=== PATIENT | male | born 1985 | race Caucasian/White ===

== ENCOUNTER 2020-02-14 13:00 | Emergency (ER) | payer SELFPAY ==
[2020-02-14 13:10] VITALS: BMI 26.6
[2020-02-14 13:12] VITALS: BP 127/82; PULSE 84; RESP 16; TEMP 36.9; O2SAT 98
--- NOTE | 2020-02-14 14:11 | XRR_ITS ---
PROCEDURE INFORMATION: Exam: XR Right Elbow Exam date and time: 02/14/2020 2:56 PM Age: 34 years old Clinical indication: Patient HX: PT has ulcerative colitis and gets joint pain. Worse in right elbow. ; Additional info: Injury TECHNIQUE: Imaging protocol: XR Right elbow. Views: 3 or more views. COMPARISON: No relevant prior studies available. FINDINGS: Bones/joints: The negative for acute bony abnormality Soft tissues: Normal. XR/XR elbow RT min 3V* [id number] IMPRESSION: No acute findings.
--- NOTE | 2020-02-14 14:13 | ED_ITS ---
HPI - General Adult General: Chief complaint: General Medical Stated complaint: joint pain Time Seen by Provider: 02/14/20 14:08 Source: patient Mode of arrival: ambulatory Limitations: no limitations History of Present Illness: HPI narrative: 34-year-old male who states he has ulcerative colitis and gets joint pain at times. He states he has had joint pains all over his body for months but mainly in his right elbow. He states is been worsening and is painful anytime to lift something. He denies any fevers. He denies any injuries. States it is improved with rest. Onset (ago): month(s) Associated symptoms: Deny chest pain, dyspnea, headache(s), nausea, rash or vomiting Review of Systems Const: Denies: fever(s), chills, body aches or change in appetite Eyes: Denies: blurry vision or eye discomfort ENMT: Denies: throat pain or dental pain Card: Denies: chest pain Resp: Denies: dyspnea GI: Denies: abdominal pain, nausea, vomiting or diarrhea : Denies: dysuria Musc: Reports: joint pain Skin/Breast: Denies: rash Neuro: Denies: headache(s) Psych: Denies: depression Theron/Lymph: Denies: easy bruising All/Imm: Denies: urticaria Physical Exam Const: COMMON NORMALS: no acute distress, patient oriented x3 and healthy appe aring HENMT: COMMON NORMALS: normocephalic and atraumatic HEAD & SCALP: normocephalic and atraumatic Eye: COMMON NORMALS: Equal, round and reactive pupils present and EOMs intact bilaterally PUPIL: Yes Equal, round and reactive pupils present Neck/C-Spine: COMMON NORMALS: full ROM and supple Chest: COMMONS NORMALS: normal inspection of the chest and normal palpation of entire chest wall Resp: COMMON NORMALS: normal respiratory effort, No retractions, No use of accessory muscles and clear to auscultation bilaterally AUSCULTATION: clear to auscultation bilaterally Cardio: COMMON NORMALS: regular rate, regular rhythm and No murmurs present (Cardio) RATE: regular rate RHYTHM: regular rhythm GI: COMMON NORMALS: Normal to inspection, nondistended, normoactive bowel sounds present, Soft to palpation, non-tender and no masses PALPATION: Yes Soft to palpation Extremity: COMMON NORMALS: normal to inspection and full ROM Neuro: COMMON NORMALS: patient oriented x3, moves all extremities and no focal motor deficits Psych: COMMON NORMALS: mental status grossly normal, Normal thought process present and cooperative THOUGHT PROCESS: Normal thought process present Skin: COMMON NORMALS: no rashes or lesions noted and no wounds GENERAL SKIN EXAM: no rashes or lesions noted Course Vital Signs: Vital signs: Vital Signs Temperature 98.4 F 02/14/20 13:12 Pulse Rate 84 02/14/20 13:12 Respiratory Rate 18 02/14/20 14:14 Blood Pressure 127/82 02/14/20 13:12 Pulse Oximetry 98 02/14/20 13:12 MDM - General Adult MDM Narrative: Medical decision making narrative: Patient presents with joint pain mainlyd the right elbow. His exam here is benign and x-ray and lab work are normal. We will place him on Naprosyn and he is stable for discharge. He is to follow-up primary care doctor in 2 to 4 days return if worsening. Lab Data: Labs: Lab Results 02/14/20 02/14/20 Range/Units 14:25 14:25 WBC 8.8 (4.0-10.0) 10^3/ uL RBC 5.12 (4.1-5.3) 10^6/u L Hgb 16.4 (11.7-16.6) g/dL Hct 48.5 (42.0-52.0) % MCV 94.7 H (80-94) fL MCH 32.0 (28.0-34.0) pg MCHC 33.8 (30.0-36.0) g/dL RDW 13.2 (12.1-15.1) % Plt Count 226 (130-400) 10^3/c mm MPV 11.0 H (7.4-10.4) fL Neut % (Auto) 64.4 % Lymph % (Auto) 24.4 % [place] % (Auto) 6.5 % Eos % (Auto) 3.9 % Baso % (Auto) 0.6 % Neut # (Auto) 5.7 (1.8-7.7) 10^3/u L Lymph # (Auto) 2.1 (0.8-4.8) 10^3/u L [place] # (Auto) 0.6 (0.2-0.9) 10^3/u L Eos # (Auto) 0.3 (0.0-0.8) 10^3/u L Baso # (Auto) 0.1 (0.0-0.1) 10^3/u L Nucleated RBC % (a uto) 0 % Nucleated RBCs # 0.0 /100WBC Sodium 139 (136-145) mmol/L Potassium 4.1 (3.5-5.1) mmol/L Chloride 104 (98-107) mmol/L Carbon Dioxide 24 (22-29) mmol/L Anion Gap 15.1 (5-19) BUN 12 (6-20) mg/dL Creatinine 0.7 (0.7-1.2) mg/dL GFR Calculation 128.3 (90-130) mL/min Glucose 92 (65-115) mg/dL Calculated Osmolal ity 284 L (285-295) mOsm/k g Calcium 9.5 (8.5-10.5) mg/dL Total Bilirubin 0.3 (0.15-1.2) mg/dL AST 27 (0-40) U/L ALT 18 (0-41) U/L Alkaline Phosphata se 72 (40-130) IU/L Total Protein 7.2 (6.6-8.7) g/dL Albumin 4.9 (3.5-5.2) g/dL Globulin 2.3 (1.3-4.6) g/dL Imaging Data^: xr r elbow: Attestation: I personally reviewed and interpreted this imaging study as follows: My impression: no acute abnormality Discharge Plan Discharge Patient Disposition: Home, Self-Care Clinical Impression: Elbow pain, right, Arthralgia Condition: Stable Prescriptions: New Naprosyn 500 mg tablet 500 mg PO BID PRN (Reason: pain) Qty: 20 RF: 0 No Action citalopram 20 mg tablet 20 mg PO DAILY 30 Days Qty: 30 RF: 5 trazodone 50 mg Tablet 50 mg PO BEDTIME RF: 0 omeprazole 20 mg Capsule,Delayed Release(Dr/Ec) 20 mg PO BID RF: 0 Discharge Orders: Discharge Order (Routine); Ordered 02/14/20 Ordered By: Bere Smith Referrals: Enio Harris MD [Primary Care Provider] - 1-3 days Discharge Diet: Advance as tolerated Discharge Activity: Resume usual activity Patient Instructions: Arthralgia (ED) Coding Level of Care Code ED Purification Operator for Tc Fwd Exam Comprehensive
[2020-02-14 14:14] VITALS: RESP 18
[2020-02-14 14:34] LABS: Basophils # 0.1 10^3/uL (0.0-0.1); Basophils % 0.6 %; Eosinophils # 0.3 10^3/uL (0.0-0.8); Eosinophils % 3.9 %; Hematocrit 48.5 % (42.0-52.0); Hemoglobin 16.4 g/dL (11.7-16.6); Lymphocytes # 2.1 10^3/uL (0.8-4.8); Lymphocytes % 24.4 %; Mean Corpuscular HGB Conc 33.8 g/dL (30.0-36.0); Mean Corpuscular Volume 94.7 fL (80-94); Monocytes # 0.6 10^3/uL (0.2-0.9); Monocytes % 6.5 %; Neutrophils # 5.7 10^3/uL (1.8-7.7); Neutrophils % 64.4 %; Nucleated Red Blood Cells % 0 %; Platelet Count 226 10^3/cmm (130-400); Red Blood Count 5.12 10^6/uL (4.1-5.3); Red Cell Distribution Width 13.2 % (12.1-15.1); White Blood Count 8.8 10^3/uL (4.0-10.0)
[2020-02-14 14:49] LABS: Alanine Aminotransferase 18 U/L (0-41); Albumin Level 4.9 g/dL (3.5-5.2); Alkaline Phosphatase 72 IU/L (40-130); Anion Gap 15.1 (5-19); Aspartate Amino Transferase 27 U/L (0-40); Blood Urea Nitrogen 12 mg/dL (6-20); Calcium 9.5 mg/dL (8.5-10.5); Carbon Dioxide 24 mmol/L (22-29); Chloride 104 mmol/L (98-107); Globulin 2.3 g/dL (1.3-4.6); Glomerular Filtration Rate 128.3 mL/min (90-130); Glucose 92 mg/dL (65-115); Osmolality Calculated 284 mOsm/kg (285-295); Potassium 4.1 mmol/L (3.5-5.1); Sodium 139 mmol/L (136-145); Total Bilirubin 0.3 mg/dL (0.15-1.2); Total Protein 7.2 g/dL (6.6-8.7)
[2020-02-14] MEDS: sodium chloride 0.9% 1,000 ML 999 ML IV (15:00)
[2020-02-14] MEDS: ketorolac 30 mg/mL INJ IVP (15:02)
[2020-02-14 16:08] VITALS: BP 127/82; PULSE 84; RESP 18; TEMP 36.9; O2SAT 98
== END 2020-02-14 16:08 | disposition home or self-care (01) ==
PROVIDERS: Emergency Provider Emergency Medicine; PCP Family Medicine
DX: M25.521 Pain in right elbow (principal)
CPT/HCPCS: 12345; 36415; 73080; 80053; 85025; 96360; 96361; 96374; 96375; 99283; J1885; J7030

== ENCOUNTER 2020-04-20 13:22 | Emergency (ER) | payer SELFPAY ==
[2020-04-20 13:38] VITALS: BP 130/77; PULSE 82; RESP 16; TEMP 36.5; O2SAT 98; BMI 26.4
--- NOTE | 2020-04-20 13:47 | ED_ITS ---
HPI - Back Pain/Injury General: Chief Complaint: Back Pain/Injury Stated Complaint: back pain Time Seen by Provider: 04/20/20 13:47 History of Present Illness: HPI Narrative: Patient is a 35-year-old male who comes to the ED with lower back muscle spasms and lower back pain. Symptoms started yesterday. Patient says he has a past medical history of lower back spasms. 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 He currently rates his back pain an 8 out of 10. Says any movement causes increased pain and muscle spasms. Denies any numbness tingling or pain down the extremities. Denies bladder or bowel incontinence or pelvic anesthesia. Denies any recent trauma or injury to cause back pain. Associated symptoms: Deny abdominal pain, chills, dysuria, fatigue, fever(s), hematuria, nausea or vomiting Review of Systems Const: Denies: fever(s), chills or fatigue Eyes: Denies: change in vision or eye discomfort ENMT: Denies: throat pain, odynophagia, nasal discharge or nasal congestion Card: Denies: chest pain, palpitations, edema, swelling of feet/ankles, dyspnea on exertion or orthopnea Resp: Denies: dyspnea, productive cough or non-productive cough GI: Denies: abdominal pain, nausea, vomiting, diarrhea, constipation or hematochezia : Denies: flank pain, difficulty urinating, dysuria or hematuria Musc: Reports: back pain (lumbar); Denies: neck pain or extremity swelling Skin/Breast: Denies: rash or new lesions Neuro: Denies: headache(s), numbness in extremities or weakness in extremities PFSH ED PFSH: Social History Smoking and tobacco status: current every day smoker Physical Exam Const: COMMON NORMALS: no acute distress, patient oriented x3, healthy appearing and alert GENERAL APPEARANCE: cooperative HENMT: COMMON NORMALS: normocephalic HEAD & SCALP: normocephalic MOUTH: Normal oral and palatal mucosa present THROAT: posterior oropharynx normal and uvula midline Neck/C-Spine: COMMON NORMALS: supple GENERAL: Yes normal visual inspection Resp: COMMON NORMALS: normal respiratory effort, No retractions, No use of accessory muscles and clear to auscultation bilaterally EFFORT & INSPECTION: Yes able to speak in complete sentences, No respiratory distress and No labored AUSCULTATION: clear to auscultation bilaterally Cardio: COMMON NORMALS: regular rate, regular rhythm, S1 normal heart sound present, S2 normal heart sound present, No gallops present (Cardio), No clicks present (Cardio), No murmurs present (Cardio) and Peripheral pulses 2+ throughout RATE: regular rate RHYTHM: regular rhythm HEART SOUNDS: S1 normal heart sound present and S2 normal heart sound present PERIPHERAL PULSES: Peripheral pulses 2+ throughout GI: COMMON NORMALS: Normal to inspection, nondistended, normoactive bowel sounds present, Soft to palpation, non-tender and no masses PALPATION: Yes Soft to palpation : COMMON NORMALS: Yes no CVA tenderness BLADDER/KIDNEY EXAM: Yes no CVA tenderness Back/Pelvis: COMMON NORMALS: no CVA tenderness LUMBAR SPINE/LOWER BACK: Yes paraspinal muscle tenderness Lumbar paraspinal muscle tenderness: bilateral (Increased tenderness on right side) and Yes paraspinal muscle spasm Lumbar paraspinal muscle spasm: right Extremity: COMMON NORMALS: normal to inspection Neuro: COMMON NORMALS: patient oriented x3 and moves all extremities SENSORIUM/ORIENTATION: Yes alert Skin: COMMON NORMALS: no rashes or lesions noted GENERAL SKIN EXAM: no rashes or lesions noted and dry skin Course Vital Signs: Vital signs: Vital Signs Temperature 97.7 F 04/20/20 13:38 Pulse Rate 82 04/20/20 13:38 Respiratory Rate 16 04/20/20 13:38 Blood Pressure 130/77 04/20/20 13:38 Pulse Oximetry 98 04/20/20 13:38 MDM - Back Pain/Injury MDM Narrative: Medical decision making narrative: Patient is a 35-year-old male with the ED with lower back pain and muscle spasms. Denies any pain radiating down the leg, numbness or tingling to extremities, pelvic, bladder or bowel incontinence. Physical exam showed some lumbar paraspinal muscle tenderness with increased tenderness on the right side. lumbar Paraspinal muscle spasms on the right side. Patient was given a dose of hydrocodone and Norflex while here in the ED. He was discharged with a prescription for Robaxin. He was told to go home and take Tylenol for pain, apply cold pack, stretch and massage lower back daily. Follow-up with PCP in 7 to 10 days. Return to ED precautions given. Patient understood agree with plan. Discharge Plan Discharge Patient Disposition: Home Clinical Impression: Spasm of lumbar paraspinous muscle, Lumbar back pain Condition: Stable Prescriptions: New Robaxin-750 750 mg tablet 750 mg PO Q8H Qty: 30 RF: 0 No Action citalopram 20 mg tablet 20 mg PO DAILY 30 Days Qty: 30 RF: 5 trazodone 50 mg Tablet 50 mg PO BEDTIME RF: 0 omeprazole 20 mg Capsule,Delayed Release(Dr/Ec) 20 mg PO BID RF: 0 Naprosyn 500 mg tablet 500 mg PO BID PRN (Reason: pain) Qty: 20 RF: 0 Discharge Orders: Discharge Order (Routine); Ordered 04/20/20 Ordered By: Raffaele Forbes Referrals: Enio Harris MD [Primary Care Provider] - Discharge Diet: Regular Discharge Activity: Increase activity as tolerated Patient Instructions: Acute Low Back Pain (ED), Muscle Spasm (ED) Activity Restrictions/Additional Instructions: Follow-up with medical provider as directed in 7-10 days. Take medications as prescribed. Robaxin is a muscle relaxer and can cause some drowsiness so take at night before bed. If you do take during the day use with caution. Apply cold pack on back, stretch daily and massage sore muscles help with symptoms. Take btby-mby-ghcotld Tylenol to help with pain. Return to the ER or your medical provider if condition worsens. Please read and understand discharge instructions. If any questions, please ask. Stand Alone Forms: Work/School Release Discharge Date/Time: 04/20/20 14:13 Coding Level of Care Code ED Java [id number] Software Engineer for Tc Fwd Exam Comprehensive
[2020-04-20] MEDS: HYDROcodone-acetaminophen 7.5-325 mg Tablet 1 TAB PO (14:06)
[2020-04-20] MEDS: orphenadrine 30 mg/mL Inj 2 mL 60 MG IM (14:06)
== END 2020-04-20 14:13 | disposition home or self-care (01) ==
PROVIDERS: Emergency Provider Physician Assistant; PCP Family Medicine
DX: M62.830 Muscle spasm of back (principal); M54.5 Low back pain; F17.210 Nicotine dependence, cigarettes, uncomplicated
CPT/HCPCS: 12345; 96372; 99281; 99283; J2360

== ENCOUNTER 2020-06-19 15:27 | Emergency (ER) | payer SELFPAY ==
[2020-06-19 15:29] VITALS: BP 126/85; PULSE 87; RESP 18; TEMP 36.6; O2SAT 98; BMI 26.3
--- NOTE | 2020-06-19 15:49 | ED_ITS ---
HPI - Eye Problem General: Chief complaint: Eye Problems Stated complaint: Left Eye Injury Time Seen by Provider: 06/19/20 15:45 History of Present Illness: HPI Narrative: Patient complained about eye pain since yesterday. 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 chief complaint: eye pain Onset (ago): day(s) Onset description: sudden Duration: constant and progressively worsening Location: left eye Eye Symptoms: foreign body sensation Place: work Mechanism: other (Unsure) Severity: moderate Severity scale (1-10): 4 If Pain, Quality: throbbing Associated symptoms: Reports no associated symptoms; Denies fever(s) Review of Systems Const: Denies: fever(s) or chills Eyes: Reports: blurry vision, eye discomfort and increased production of tears (Left eye) PFSH ED PFSH: Social History Smoking and tobacco status: current every day smoker Physical Exam Const: COMMON NORMALS: no acute distress Eye: GENERAL EYE: other (Appears to be foreign body 12 o'clock position cornea) Psych: COMMON NORMALS: mental status grossly normal Procedures FB Removal Eye Time Out performed: No Location: eye (L) Topical anesthetic used: tetracaine Foreign body: other Evidence of corneal penetration: No Technique: cotton tip swab and needle Procedure performed under: direct visualization with magnification Post-procedure medication: ophthalmic antibiotic and topical anesthetic Patient tolerated procedure: well Course Vital Signs: Vital signs: Vital Signs Temperature 97.9 F 06/19/20 15:29 Pulse Rate 87 06/19/20 15:29 Respiratory Rate 18 06/19/20 15:29 Blood Pressure 126/85 06/19/20 15:29 Pulse Oximetry 98 06/19/20 15:29 Discharge Plan Discharge Prescriptions: No Action citalopram 20 mg tablet 20 mg PO DAILY 30 Days Qty: 30 RF: 5 trazodone 50 mg Tablet 50 mg PO BEDTIME RF: 0 omeprazole 20 mg Capsule,Delayed Release(Dr/Ec) 20 mg PO BID RF: 0 Naprosyn 500 mg tablet 500 mg PO BID PRN (Reason: pain) Qty: 20 RF: 0 Robaxin-750 750 mg tablet 750 mg PO Q8H Qty: 30 RF: 0 Coding Level of Care Code ED Solution Specialist for Chg Fwd Exam Expanded Problem Focused
[2020-06-19] MEDS: tetracaine 0.5% Op Soln 4 mL Btl 1 DROP EYE-LEFT (16:37)
[2020-06-19] MEDS: erythromycin Op Oint 3.5 gm Tube 1 APPLIC EYE-LEFT (16:37)
[2020-06-19 16:38] VITALS: BP 127/81; PULSE 85; RESP 14; O2SAT 98
== END 2020-06-19 16:38 | disposition home or self-care (01) ==
PROVIDERS: Emergency Provider Nurse Practitioner Family; PCP Family Medicine
DX: H57.12 Ocular pain, left eye (principal); H53.8 Other visual disturbances; Z79.1 Long term (current) use of non-steroidal anti-inflammatories (NSAID); F17.200 Nicotine dependence, unspecified, uncomplicated
CPT/HCPCS: 12345; 65205; 99281; 99283

== ENCOUNTER 2020-10-08 15:46 | Emergency (ER) | payer SELFPAY ==
[2020-10-08 15:58] VITALS: BP 133/82; PULSE 93; RESP 14; TEMP 36.9; O2SAT 97; BMI 25.8
--- NOTE | 2020-10-08 17:32 | W.ED.GENADLT ---
HPI - General Adult General: Chief complaint: General Medical Stated complaint: THROAT DISCOMFORT Time Seen by Provider: 10/08/20 17:23 Source: patient Mode of arrival: ambulatory Limitations: no limitations History of Present Illness: HPI narrative: Patient comes in today for complaints of throat discomfort for the last month. Patient reports some rawness and tenderness in the throat. Patient also notes some gland tenderness on the left submandibular area. 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 Patient appears well. Patient appears no acute distress. Patient does have a history of Crohn's disease. Review of Systems General: Reports: 10 or more systems reviewed and unremarkable except in HPI and below ENMT: Reports: throat pain PFSH ED PFSH: Social History Smoking and tobacco status: current every day smoker Physical Exam Const: COMMON NORMALS: no acute distress and patient oriented x3 GENERAL APPEARANCE: cooperative HENMT: COMMON NORMALS: normocephalic, TM's normal bilaterally and Normal external nose present HEAD & SCALP: normal to inspection and normocephalic NOSE: Normal external nose present TYMPANIC MEMBRANE: TM's normal bilaterally MOUTH: Normal oral and palatal mucosa present THROAT: posterior oropharynx normal (No swelling, symmetrical, mild erythema.) Eye: GENERAL EYE: appearance normal, both eyes and all related structures Neck/C-Spine: COMMON NORMALS: full ROM Lymph: OTHER: Left side submandibular lymphadenopathy or gland swelling. Chest: COMMONS NORMALS: normal inspection of the chest Resp: COMMON NORMALS: normal respiratory effort EFFORT & INSPECTION: Yes able to speak in complete sentences Cardio: COMMON NORMALS: regular rate and regular rhythm RATE: regular rate RHYTHM: regular rhythm GI: COMMON NORMALS: non-tender : COMMON NORMALS: Yes no CVA tenderness BLADDER/KIDNEY EXAM: Yes no CVA tenderness Back/Pelvis: COMMON NORMALS: no CVA tenderness and thoracic and lumbar spine normal to inspection Extremity: COMMON NORMALS: normal to inspection Neuro: COMMON NORMALS: patient oriented x3 and moves all extremities Psych: COMMON NORMALS: mental status grossly normal and cooperative Skin: COMMON NORMALS: no rashes or lesions noted GENERAL SKIN EXAM: no rashes or lesions noted Course Vital Signs: Vital signs: Vital Signs Temperature 98.4 F 10/08/20 15:58 Pulse Rate 93 10/08/20 15:58 Respiratory Rate 14 10/08/20 15:58 Blood Pressure 133/82 10/08/20 15:58 Pulse Oximetry 97 10/08/20 15:58 MDM - General Adult MDM Narrative: Medical decision making narrative: Patient came in today for complaints of sore throat with some lymphadenopathy for the last month. Patient has a history of Crohn's. Patient reports some night sweats but reports he always has night sweats. Patient appears well. Patient appears in no acute distress. Exam notes some mild redness to the posterior pharynx. Patient does have some enlargement of the left submandibular lymph node with tenderness but otherwise no other signs of significant lymphadenopathy is noted. Patient manages secretions well. Patient does report recurrent reflux symptoms which he takes omeprazole daily. Differential diagnosis includes not limited to viral pharyngitis, strep pharyngitis, GERD, Paulo-Aranda virus. Due to the patient's symptoms lasting greater than 4 weeks we will go ahead and do a short course of antibiotics of a beta-lactam to cover for strep. Patient was also given 1 dose of dexamethasone that may help with his tenderness of his throat. Discussed other options with patient that may be caused from a Paulo-Aranda virus that will last about 6 to 8 weeks and usually recovers without any further sequela. Another thought may be GERD which he is continuing with omeprazole he may need to seek further treatment for. Patient reported understanding and agreed to plan. Discharge Plan Discharge Patient Disposition: Home Clinical Impression: Pharyngitis Qualifiers: Pharyngitis/tonsillitis etiology: unspecified etiology Qualified Code(s): J02.9 - Acute pharyngitis, unspecified Condition: Stable Prescriptions: New amoxicillin 500 mg tablet 500 mg PO TID Qty: 21 RF: 0 dexamethasone 4 mg tablet 8 mg PO ONCE Qty: 2 RF: 0 No Action citalopram 20 mg tablet 20 mg PO DAILY 30 Days Qty: 30 RF: 5 erythromycin 5 mg/gram (0.5 %) ointment 1 applic ophthalmic (eye) QID Qty: 3.5 RF: 0 trazodone 50 mg Tablet 50 mg PO BEDTIME RF: 0 omeprazole 20 mg Capsule,Delayed Release(Dr/Ec) 20 mg PO BID RF: 0 Naprosyn 500 mg tablet 500 mg PO BID PRN (Reason: pain) Qty: 20 RF: 0 Robaxin-750 750 mg tablet 750 mg PO Q8H Qty: 30 RF: 0 Discharge Orders: Discharge ED (Routine); Ordered 10/08/20 Ordered By: Rd Jerez Referrals: Enio Harris MD [Primary Care Provider] - Discharge Diet: Usual diet Discharge Activity: Increase activity as tolerated Patient Instructions: Pharyngitis (ED), Opioid Safety Activity Restrictions/Additional Instructions: Drink plenty of water with medication. Healthy diet and activity. Use acetaminophen or ibuprofen for further pain relief. Follow-up with primary care for recheck of symptoms in 1 week. Return to emergency department for worsening symptoms such as high fever, difficulty swallowing, or worsening swelling in the lymph nodes. Coding Level of Care Code ED Ekg Monitor for Tc Delgado
[2020-10-08 17:58] VITALS: BP 124/83; PULSE 79; RESP 14; O2SAT 98
== END 2020-10-08 17:52 | disposition home or self-care (01) ==
PROVIDERS: Emergency Provider Nurse Practitioner Family; PCP Family Medicine
DX: J02.9 Acute pharyngitis, unspecified (principal); F17.210 Nicotine dependence, cigarettes, uncomplicated
CPT/HCPCS: 99282

== ENCOUNTER 2020-10-22 15:32 | Emergency (ER) | payer SELFPAY ==
[2020-10-22] VITALS (7 sets, daily range): BP systolic 120–153; BP diastolic 82–95; PULSE 67–92; RESP 14–18; TEMP 37.1; O2SAT 96–98; BMI 26.6
[2020-10-22 17:04] LABS: Basophils % 0.4 %; Eosinophils # 0.2 10^3/uL (0.0-0.8); Hematocrit 50.3 % (42.0-52.0); Hemoglobin 17.2 g/dL (11.7-16.6); Lymphocytes # 1.6 10^3/uL (0.8-4.8); Lymphocytes % 17.6 %; Mean Corpuscular HGB Conc 34.2 g/dL (30.0-36.0); Mean Corpuscular Hemoglobin 32.2 pg (28.0-34.0); Mean Corpuscular Volume 94.2 fL (80-94); Mean Platelet Volume 10.8 fL (7.4-10.4); Monocytes # 0.5 10^3/uL (0.2-0.9); Monocytes % 5.4 %; Neutrophils # 6.66 10^3/uL (1.8-7.7); Neutrophils % 74.3 %; Nucleated Red Blood Cells % 0 %; Platelet Count 244 10^3/cmm (130-400); Red Blood Count 5.34 10^6/uL (4.1-5.3); Red Cell Distribution Width 13.1 % (12.1-15.1)
[2020-10-22 17:05] LABS: Add Urine Microscopic? NO
--- NOTE | 2020-10-22 17:11 | CTR_ITS ---
PROCEDURE INFORMATION: Exam: CT Abdomen And Pelvis With Contrast Exam date and time: 10/22/2020 5:18 PM Age: 35 years old Clinical indication: Nausea; Abdominal pain; Localized; Left lower quadrant (llq); Prior surgery; Surgery type: Appy; Additional info: H/o uc. Abdominal pain TECHNIQUE: Imaging protocol: Computed tomography of the abdomen and pelvis with contrast. Total images: 218 Radiation optimization: All CT scans at this facility use at least one of these dose optimization techniques: automated exposure control; mA and/or kV adjustment per patient size (includes targeted exams where dose is matched to clinical indication); or iterative reconstruction. Contrast material: OMNI 300; Contrast volume: 95 ml; Contrast route: INTRAVENOUS (IV); COMPARISON: CT Abdomen/Pelvis Renal [id number] 12/07/2017 11:47 PM RADIATION DOSE METRICS: Total DLP (mGy-cm): 1085.8 FINDINGS: Lungs: Limited assessment of the lung bases fails to reveal evidence for active cardiopulmonary process. Liver: Unremarkable. No mass. Gallbladder and bile ducts: Normal. No calcified stones. No ductal dilation. Pancreas: Pancreas unremarkable. No visible pancreatic ductal ectasia. Spleen: Normal. No splenomegaly. Adrenal glands: Normal. No mass. Kidneys and ureters: Tiny 4 mm cortical cyst equator left kidney. No follow-up recommended. No visible hydronephrosis or perinephric fluid. No visible nephrolithiasis or ureterolithiasis. Stomach and bowel: Mild mucosal thickening of the descending colon from the splenic flexure to the proximal sigmoid: level consistent with active either infectious or inflammatory colitis. Also evidence of mucosal prominence and increased enhancement of the stomach, duodenum, and jejunal small bowel loops suggesting active gastroenteritis. Nonobstructive bowel pattern. No evidence for significant adynamic or reactive ileus. Appendix: Status post appendectomy. Intraperitoneal space: No visible pneumoperitoneum or intraperitoneal ascites. Vasculature: The abdominal aorta is nonaneurysmal. Lymph nodes: Unremarkable. No enlarged lymph nodes. Urinary bladder: Urinary bladder unremarkable. No filling defect. No asymmetrical bladder wall thickening. No visible bladder stone. Reproductive: Unremarkable as visualized. Bones/joints: Mild scoliotic curvature. No visible active or acute osseous pathology. Soft tissues: Unremarkable. CT/CT abdomen pelvis w con* [id number] IMPRESSION: 1. Mild mucosal thickening of the descending colon from the splenic flexure to the proximal sigmoid colon level consistent with active either infectious or inflammatory colitis. Findings would be consistent with recurrence of ulcerative colitis. 2. Evidence of mucosal prominence and increased enhancement of the stomach, duodenum, and jejunal small bowel loops suggesting the potential for active gastroenteritis. COMMENTS: Consistent with the [employer]'s Incidental Findings Committee white paper (J Am Meena Radiol 2018): Any incidental renal lesion less than 1 cm or classified as too small to characterize, or any incidental cystic renal lesion characterized as simple-appearing, is likely benign. No follow-up imaging is recommended for these lesions per consensus recommendations based on imaging criteria. Radiation Dose CTDIVOL = (mGy): DLP = 1085.8 (mGy-cm)
[2020-10-22 17:14] LABS: Bilirubin Urine Neg (Negative); Blood Urine Neg (Negative); Glucose Urine UA Norm (Normal); Ketones Urine Negative (Negative); Leukocyte Esterase Urine Negative (Negative); Nitrate Urine Negative (Negative); Protein Urine Neg (Negative); Sulfosalicylic Acid Urine Negative (Negative); Urine Appearance Clear (CLEAR); Urine Color Yellow (Yellow); Urobilinogen Urine Norm (Negative); pH Urine 8 (5-7)
[2020-10-22 17:23] LABS: Alanine Aminotransferase 23 U/L (0-41); Albumin Level 4.9 g/dL (3.5-5.2); Alkaline Phosphatase 105 IU/L (40-130); Anion Gap 13.1 (5-19); Aspartate Amino Transferase 26 U/L (0-40); Blood Urea Nitrogen 14 mg/dL (6-20); Calcium 9.6 mg/dL (8.5-10.5); Carbon Dioxide 27 mmol/L (22-29); Chloride 101 mmol/L (98-107); Globulin 2.7 g/dL (1.3-4.6); Glomerular Filtration Rate 109.4 mL/min (90-130); Glucose 101 mg/dL (65-115); Lipase 42 U/L (13-60); Osmolality Calculated 285 mOsm/kg (285-295); Potassium 4.1 mmol/L (3.5-5.1); Sodium 137 mmol/L (136-145); Total Bilirubin 0.3 mg/dL (0.15-1.2); Total Protein 7.6 g/dL (6.6-8.7)
[2020-10-22] MEDS: iohexol 300 mg/mL 100 mL Btl IV (17:55)
[2020-10-22 18:08] LABS: Lactate (Lactic Acid level) 1.9 mmol/L (0.5-2.2)
[2020-10-22] MEDS: morphine 4 mg/mL SDV 1 mL 2 MG IVP (18:10)
[2020-10-22] MEDS: sodium chloride 0.9% 1,000 ML 999 ML IV (18:13)
--- NOTE | 2020-10-22 18:13 | W.ED.ABDPA2 ---
HPI - Abdominal Pain General: Chief Complaint: Abdominal Pain Stated Complaint: SEVERE STOMACH PAIN Time Seen by Provider: 10/22/20 17:11 History of Present Illness: HPI narrative: The patient is a 35-year-old male with past medical history ulcerative colitis who comes to the ER complaining of left and left lower quadrant abdominal pain associated with diarrhea. No blood. He recognizes this as a flare of his Crohn's disease. He has been unable to afford his medicines for approximately 6 months MD elicited complaint: abdominal pain Pain Consistency: constant Location: LLQ Severity: moderate Quality: sharp Exacerbating factors: bowel movement Relieving factors: nothing Associated Symptoms: Reports diarrhea Review of Systems General: Reports: 10 or more systems reviewed and unremarkable except in HPI and below Const: Denies: fatigue Eyes: Denies: change in vision, blurry vision or eye redness ENMT: Denies: throat pain, swelling of lips/tongue, ear or mastoid pain or nasal congestion Card: Denies: chest pain, palpitations, irregular heart rhythm, edema, dyspnea on exertion or orthopnea Resp: Denies: dyspnea, productive cough or non-productive cough GI: Reports: diarrhea : Denies: flank pain, urinary frequency or urinary urgency Musc: Denies: neck pain, back pain, extremity pain, joint pain, joint redness, limited range of motion or muscle weakness Skin/Breast: Denies: rash, pruritus, erythema, skin pain or skin tenderness Neuro: Denies: headache(s), numbness in extremities, weakness in extremities, sensory changes, difficulty walking, dizziness, confusion or Slurred speech present Psych: Denies: anxiety or depression Endo: Denies: polyuria All/Imm: Denies: urticaria, throat swelling or tongue swelling PFSH ED PFSH: Social History Smoking and tobacco status: current every day smoker Physical Exam Const: COMMON NORMALS: no acute distress, average body habitus, patient oriented x3, no limitations, healthy appearing, alert and well nourished GENERAL APPEARANCE: cooperative, comfortable, well kempt and well developed ORIENTATION/CONSCIOUSNESS: Yes awake, Yes oriented to person, Yes oriented to place and Yes oriented to time HENMT: COMMON NORMALS: normocephalic, external ears normal and Normal external nose present HEAD & SCALP: normal to inspection and normocephalic NOSE: Normal external nose present EXTERNAL EAR: Yes external ears normal MOUTH: Normal oral and palatal mucosa present THROAT: posterior oropharynx normal Eye: COMMON NORMALS: Equal, round and reactive pupils present and EOMs intact bilaterally GENERAL EYE: appearance normal, both eyes and all related structures PUPIL: Yes Equal, round and reactive pupils present Neck/C-Spine: COMMON NORMALS: full ROM, no lymphadenopathy, no meningeal signs and no JVD GENERAL: Yes normal visual inspection Lymph: LYMPHATIC: no lymphadenopathy noted Chest: COMMONS NORMALS: normal inspection of the chest and normal palpation of entire chest wall Resp: COMMON NORMALS: normal respiratory effort, No retractions, No use of accessory muscles, clear to auscultation bilaterally and percussion normal EFFORT & INSPECTION: Yes able to speak in complete sentences AUSCULTATION: clear to auscultation bilaterally PERCUSSION: percussion normal Cardio: COMMON NORMALS: no JVD, regular rate, regular rhythm, S1 normal heart sound present, S2 normal heart sound present and Peripheral pulses 2+ throughout RATE: regular rate RHYTHM: regular rhythm HEART SOUNDS: S1 normal heart sound present and S2 normal heart sound present PERIPHERAL PULSES: Peripheral pulses 2+ throughout GI: COMMON NORMALS: Normal to inspection, nondistended, normoactive bowel sounds present, Soft to palpation, non-tender and no masses INSPECTION: Yes normal to inspection PALPATION: Yes Soft to palpation : COMMON NORMALS: Yes no CVA tenderness BLADDER/KIDNEY EXAM: Yes no CVA tenderness Back/Pelvis: COMMON NORMALS: no CVA tenderness, thoracic and lumbar spine normal to inspection, no thoracic nor lumbar tenderness and thoraco-lumbar ROM normal Extremity: COMMON NORMALS: normal to inspection, full ROM, capillary refill normal, no joint enlargement and no pedal edema GENERAL: Yes normal exam except as noted Neuro: COMMON NORMALS: patient oriented x3, CN's II-XII intact bilaterally, moves all extremities, no focal motor deficits, no sensory deficits noted and gait normal SENSORIUM/ORIENTATION: Yes alert, Yes oriented to person, Yes oriented to place and Yes oriented to time MENINGEAL SIGNS: Yes no meningeal signs Psych: COMMON NORMALS: mental status grossly normal, Normal thought process present, cooperative, normal affect and speech normal APPEARANCE: Yes well kempt ATTITUDE: Yes calm SPEECH: Yes normal speech THOUGHT PROCESS: Normal thought process present Skin: COMMON NORMALS: no rashes or lesions noted GENERAL SKIN EXAM: no rashes or lesions noted Course Vital Signs: Vital signs: Vital Signs Temperature 98.7 F 10/22/20 15:33 Pulse Rate 78 10/22/20 19:41 Respiratory Rate 16 10/22/20 19:41 Blood Pressure 127/82 10/22/20 19:41 Pulse Oximetry 98 10/22/20 19:41 MDM - Abdominal Pain MDM Narrative: Medical decision making narrative: CT shows a ulcerative colitis flare. No significant abnormalities found. White count normal. Pain controlled and tolerating oral well. No GI bleeding. He is stable for discharge. He was given dexamethasone and morphine for pain. He will be discharged with a Medrol Dosepak and [place]. Discussed with Dr. Shabazz who says he can see him as an outpatient. Placed a case management referral to help him get an appointment. Lab Data: Labs: Lab Results 10/22/20 10/22/20 10/22/20 Range/Units 16:55 16:55 16:55 WBC 9.0 (4.0-10.0) 10^3/ uL RBC 5.34 H (4.1-5.3) 10^6/u L Hgb 17.2 H (11.7-16.6) g/dL Hct 50.3 (42.0-52.0) % MCV 94.2 H (80-94) fL MCH 32.2 (28.0-34.0) pg MCHC 34.2 (30.0-36.0) g/dL RDW 13.1 (12.1-15.1) % Plt Count 244 (130-400) 10^3/c mm MPV 10.8 H (7.4-10.4) fL Neut % (Auto) 74.3 % Lymph % (Auto) 17.6 % [place] % (Auto) 5.4 % Eos % (Auto) 2.0 % Baso % (Auto) 0.4 % Neut # (Auto) 6.66 (1.8-7.7) 10^3/u L Lymph # (Auto) 1.6 (0.8-4.8) 10^3/u L [place] # (Auto) 0.5 (0.2-0.9) 10^3/u L Eos # (Auto) 0.2 (0.0-0.8) 10^3/u L Baso # (Auto) 0.0 (0.0-0.1) 10^3/u L Nucleated RBC % (a uto) 0 % Nucleated RBCs # 0.0 /100WBC Sodium 137 (136-145) mmol/L Potassium 4.1 (3.5-5.1) mmol/L Chloride 101 (98-107) mmol/L Carbon Dioxide 27 (22-29) mmol/L Anion Gap 13.1 (5-19) BUN 14 (6-20) mg/dL Creatinine 0.8 (0.7-1.2) mg/dL GFR Calculation 109.4 (90-130) mL/min Glucose 101 (65-115) mg/dL Calculated Osmolal ity 285 (285-295) mOsm/k g Lactate 1.9 (0.5-2.2) mmol/L Calcium 9.6 (8.5-10.5) mg/dL Total Bilirubin 0.3 (0.15-1.2) mg/dL AST 26 (0-40) U/L ALT 23 (0-41) U/L Alkaline Phosphata se 105 (40-130) IU/L Total Protein 7.6 (6.6-8.7) g/dL Albumin 4.9 (3.5-5.2) g/dL Globulin 2.7 (1.3-4.6) g/dL Lipase 42 (13-60) U/L Urine Color (Yellow) Urine Appearance (CLEAR) Urine pH (5-7) Ur Specific Gravit y (1.005-1.030) Urine Protein (Negative) Urine Glucose (UA) (Normal) Urine Ketones (Negative) Urine Blood (Negative) Urine Nitrate (Negative) Urine Bilirubin (Negative) Prot Sulfosalicyli c Acd (Negative) Urine Urobilinogen (Negative) mg/dL Ur Leukocyte Batsheva ase (Negative) 10/22/20 Range/Units 17:00 WBC (4.0-10.0) 10^3/ uL RBC (4.1-5.3) 10^6/u L Hgb (11.7-16.6) g/dL Hct (42.0-52.0) % MCV (80-94) fL MCH (28.0-34.0) pg MCHC (30.0-36.0) g/dL RDW (12.1-15.1) % Plt Count (130-400) 10^3/c mm MPV (7.4-10.4) fL Neut % (Auto) % Lymph % (Auto) % [place] % (Auto) % Eos % (Auto) % Baso % (Auto) % Neut # (Auto) (1.8-7.7) 10^3/u L Lymph # (Auto) (0.8-4.8) 10^3/u L [place] # (Auto) (0.2-0.9) 10^3/u L Eos # (Auto) (0.0-0.8) 10^3/u L Baso # (Auto) (0.0-0.1) 10^3/u L Nucleated RBC % (a uto) % Nucleated RBCs # /100WBC Sodium (136-145) mmol/L Potassium (3.5-5.1) mmol/L Chloride (98-107) mmol/L Carbon Dioxide (22-29) mmol/L Anion Gap (5-19) BUN (6-20) mg/dL Creatinine (0.7-1.2) mg/dL GFR Calculation (90-130) mL/min Glucose (65-115) mg/dL Calculated Osmolal ity (285-295) mOsm/k g Lactate (0.5-2.2) mmol/L Calcium (8.5-10.5) mg/dL Total Bilirubin (0.15-1.2) mg/dL AST (0-40) U/L ALT (0-41) U/L Alkaline Phosphata se (40-130) IU/L Total Protein (6.6-8.7) g/dL Albumin (3.5-5.2) g/dL Globulin (1.3-4.6) g/dL Lipase (13-60) U/L Urine Color Yellow (Yellow) Urine Appearance Clear (CLEAR) Urine pH 8 H (5-7) Ur Specific Gravit y 1.010 (1.005-1.030) Urine Protein Neg (Negative) Urine Glucose (UA) Norm (Normal) Urine Ketones Negative (Negative) Urine Blood Neg (Negative) Urine Nitrate Negative (Negative) Urine Bilirubin Neg (Negative) Prot Sulfosalicyli c Acd Negative (Negative) Urine Urobilinogen Norm (Negative) mg/dL Ur Leukocyte Batsheva ase Negative (Negative) Discharge Plan Discharge Patient Disposition: Home Clinical Impression: Ulcerative colitis Condition: Stable Prescriptions: [place] 5-325 mg tablet 1 tab PO Q6H PRN (Reason: pain) Qty: 12 RF: 0 Medrol ([place]) 4 mg tablets,dose pack See Rx Instructions PO .COMPLEX Qty: 21 RF: 0 No Action omeprazole 20 mg Capsule,Delayed Release(Dr/Ec) 20 mg PO BID@1400,0300 RF: 0 Advil 200 mg Tablet 200 mg PO Q6H PRN (Reason: Pain) RF: 0 Discharge Orders: Discharge ED (Routine); Ordered 10/22/20 Ordered By: Neymar Ibarra Referrals: Enio Harris MD [Primary Care Provider] - Discharge Diet: Advance as tolerated Discharge Activity: Resume usual activity Patient Instructions: Ulcerative Colitis (ED), Opioid Safety Activity Restrictions/Additional Instructions: You are having a flareup of your ulcerative colitis. Please take the steroids to help with this and take the hydrocodone only for severe pain. Do not mix with drugs, alcohol, nor operate machinery while using this medication. Return to the ED with worsening symptoms otherwise follow-up with your GI doctor. I have discussed with Dr. Shabazz who would be happy to see you in his clinic if needed. I have placed a case management referral to help you get an appointment with him. This should be calling you tomorrow to assist with this. Coding Level of Care Code ED License And Permit Specialist for Tc Fwdaria Exam Comprehensive
[2020-10-22] MEDS: dexamethasone 10 mg/mL INJ IVP (19:43)
--- NOTE | 2020-10-24 09:44 | DCPLANNER ---
compensation manager had message to schedule a follow up appointment for patient with Dr. Shabazz. compensation manager called the office of Dr. Shabazz, spoke with Libby, gave clinic patients information. A followup appointment was scheduled for Thursday, October 29, 2020 at 2:[address] Shabazz. Clinic will call patient with appointment information.
--- NOTE | 2020-10-30 15:39 | DCPLANNER ---
Patient had a follow up appointment scheduled for 10.29.[address] Shabazz - patient did not attend appointment.
== END 2020-10-22 20:05 | disposition home or self-care (01) ==
PROVIDERS: Nurse Practitioner Family; Emergency Provider Family Medicine; PCP Family Medicine
DX: K51.90 Ulcerative colitis, unspecified, without complications (principal); F17.210 Nicotine dependence, cigarettes, uncomplicated
CPT/HCPCS: 74177; 80053; 81003; 83605; 83690; 85025; 96361; 96374; 96375; 99283; J1100; J2270; J7030; Q9967

== ENCOUNTER 2021-03-18 08:33 | Emergency (ER) | payer SELFPAY ==
[2021-03-18 08:38] VITALS: BP 138/85; PULSE 79; RESP 19; TEMP 37.1; O2SAT 98
--- NOTE | 2021-03-18 08:44 | W.ED.ABDPA2 ---
HPI - Abdominal Pain General: Chief Complaint: Abdominal Pain Stated Complaint: Diarrhea/Nausea/Rectal Pain/Stomach Pain Time Seen by Provider: 03/18/21 08:35 History of Present Illness: HPI narrative: 36-year-old male presents with complaints of nausea diarrhea and abdominal discomfort. Is a history of ulcerative colitis. He is currently not on any medications because he has no access to insurance. He started having diarrhea yesterday had multiple episodes of watery diarrhea then this morning began having hematochezia. Diarrhea seems to have stopped already. He denies any fever sweats or chills mild vague abdominal cramping diffuse. He denies any dysuria urgency or frequency. MD elicited complaint: abdominal pain Pertinent past history: gastrointestinal bleeding and other (Ulcerative colitis) Onset (ago): hour(s) (18) Pain Consistency: constant Location: Diffuse Severity: moderate Quality: cramping Radiation: none Migration to: no migration Exacerbating factors: eating and bowel movement Relieving factors: rest Associated Symptoms: Reports anorexia, bloating, change in bowel habits, change in stool character, GI cramping, diarrhea, hematochezia, loose stools, nausea and poor appetite; Denies belching, chills, coffee ground emesis, constipation, dyspepsia, dysuria, excessive flatus, fever(s), heartburn, hematuria, hematemesis, fecal incontinence, melena, syncope and vomiting Review of Systems Const: Denies: fever(s) or chills Card: Denies: syncope GI: Reports: nausea, diarrhea, bloating, GI cramping, change in bowel habits, change in stool character and hematochezia; Denies: vomiting, hematemesis, coffee ground emesis, heartburn, constipation, belching, excessive flatus, fecal incontinence or melena : Denies: dysuria or hematuria PFSH ED PFSH: Social History Smoking and tobacco status: current every day smoker Physical Exam Const: COMMON NORMALS: no acute distress GENERAL APPEARANCE: cooperative and comfortable ORIENTATION/CONSCIOUSNESS: Yes awake, Yes oriented to person, Yes oriented to place and Yes oriented to time HENMT: COMMON NORMALS: normocephalic, atraumatic and hearing grossly normal bilaterally HEAD & SCALP: normocephalic and atraumatic Neck/C-Spine: COMMON NORMALS: no JVD Resp: COMMON NORMALS: normal respiratory effort, No retractions, No use of accessory muscles and clear to auscultation bilaterally AUSCULTATION: clear to auscultation bilaterally Cardio: COMMON NORMALS: no JVD, regular rate, regular rhythm and No murmurs present (Cardio) RATE: regular rate RHYTHM: regular rhythm GI: COMMON NORMALS: Soft to palpation and No hepatosplenomegaly present AUSCULTATION: Yes normoactive bowel sounds PALPATION: Yes Soft to palpation, No Tenderness to palpation present (GI), No Guarding due to palpation present (GI) and Yes No hepatosplenomegaly present Extremity: COMMON NORMALS: normal to inspection, capillary refill normal, no clubbing, cyanosis or edema, no calf tenderness and no pedal edema Neuro: SENSORIUM/ORIENTATION: Yes oriented to person, Yes oriented to place and Yes oriented to time Skin: COMMON NORMALS: no rashes or lesions noted GENERAL SKIN EXAM: no rashes or lesions noted Course Vital Signs: Vital signs: Vital Signs Temperature 97.5 F L 03/18/21 10:00 Pulse Rate 75 03/18/21 11:55 Respiratory Rate 16 03/18/21 11:55 Blood Pressure 121/82 03/18/21 11:55 Pulse Oximetry 97 03/18/21 11:55 MDM - Abdominal Pain MDM Narrative: Medical decision making narrative: Reviewed lab findings with the patient. Also reviewed imaging. We will go and start him on steroids given hydrocodone and Zofran to use as needed for symptom control. Recommend he follow-up with his PCP within the next 5 to 7 days return to the emergency room if he has any worsening problems. Lab Data: Labs: Lab Results 03/18/21 03/18/21 03/18/21 Range/Units 09:17 09:17 10:06 WBC Cancelled 7.7 Corrected WBC Cancelled RBC Cancelled 4.81 Hgb Cancelled 15.7 Hct Cancelled 45.9 MCV Cancelled 95.4 H MCH Cancelled 32.6 MCHC Cancelled 34.2 RDW Cancelled 13.2 Plt Count Cancelled 201 MPV Cancelled 10.6 H Gran % Cancelled Neut % (Auto) Cancelled 63.6 Lymph % (Auto) Cancelled 25.2 [place] % (Auto) Cancelled 7.4 Eos % (Auto) Cancelled 3.1 Baso % (Auto) Cancelled 0.4 Neut # (Auto) Cancelled 4.91 Lymph # (Auto) Cancelled 1.9 [place] # (Auto) Cancelled 0.6 Eos # (Auto) Cancelled 0.2 Baso # (Auto) Cancelled 0.0 Absolute Gran (aut o) Cancelled Nucleated RBC % (a uto) Cancelled 0 Nucleated RBCs # Cancelled 0.0 Sodium 140 (136-145) mmol/L Potassium 4.2 (3.5-5.1) mmol/L Chloride 104 (98-107) mmol/L Carbon Dioxide 22 (22-29) mmol/L Anion Gap 18.2 (5-19) BUN 15 (6-20) mg/dL Creatinine 0.7 (0.7-1.2) mg/dL GFR Calculation 126.9 (90-130) mL/min Glucose 84 (65-115) mg/dL Calculated Osmolal ity 290 (285-295) mOsm/k g Calcium 8.9 (8.5-10.5) mg/dL Total Bilirubin 0.3 (0.15-1.2) mg/dL AST 29 (0-40) U/L ALT 22 (0-41) U/L Alkaline Phosphata se 98 (40-130) IU/L Total Protein 7.0 (6.6-8.7) g/dL Albumin 4.6 (3.5-5.2) g/dL Globulin 2.4 (1.3-4.6) g/dL Lipase 42 (13-60) U/L Urine Color (Yellow) Urine Appearance (CLEAR) Urine pH (5-7) Ur Specific Gravit y (1.005-1.030) Urine Protein (Negative) Urine Glucose (UA) (Normal) Urine Ketones (Negative) Urine Blood (Negative) Urine Nitrate (Negative) Urine Bilirubin (Negative) Urine Urobilinogen (Negative) mg/dL Ur Leukocyte Batsheva ase (Negative) 03/18/21 Range/Units 11:04 WBC Corrected WBC RBC Hgb Hct MCV MCH MCHC RDW Plt Count MPV Gran % Neut % (Auto) Lymph % (Auto) [place] % (Auto) Eos % (Auto) Baso % (Auto) Neut # (Auto) Lymph # (Auto) [place] # (Auto) Eos # (Auto) Baso # (Auto) Absolute Gran (aut o) Nucleated RBC % (a uto) Nucleated RBCs # Sodium (136-145) mmol/L Potassium (3.5-5.1) mmol/L Chloride (98-107) mmol/L Carbon Dioxide (22-29) mmol/L Anion Gap (5-19) BUN (6-20) mg/dL Creatinine (0.7-1.2) mg/dL GFR Calculation (90-130) mL/min Glucose (65-115) mg/dL Calculated Osmolal ity (285-295) mOsm/k g Calcium (8.5-10.5) mg/dL Total Bilirubin (0.15-1.2) mg/dL AST (0-40) U/L ALT (0-41) U/L Alkaline Phosphata se (40-130) IU/L Total Protein (6.6-8.7) g/dL Albumin (3.5-5.2) g/dL Globulin (1.3-4.6) g/dL Lipase (13-60) U/L Urine Color Yellow (Yellow) Urine Appearance Clear (CLEAR) Urine pH 5 (5-7) Ur Specific Gravit y 1.010 (1.005-1.030) Urine Protein Neg (Negative) Urine Glucose (UA) Norm (Normal) Urine Ketones Negative (Negative) Urine Blood Neg (Negative) Urine Nitrate Negative (Negative) Urine Bilirubin Neg (Negative) Urine Urobilinogen Norm (Negative) mg/dL Ur Leukocyte Batsheva ase Negative (Negative) Discharge Plan Discharge Patient Disposition: Home Clinical Impression: Ulcerative colitis Condition: Stable Prescriptions: New prednisone 20 mg tablet 20 mg PO TID Qty: 30 RF: 0 hydrocodone-acetaminophen 5-325 mg tablet 1 tab PO Q6H PRN (Reason: pain) Qty: 25 RF: 0 Zofran 4 mg tablet 4 mg PO Q6H PRN (Reason: nausea and vomiting) Qty: 20 RF: 0 No Action Tylenol Extra Strength 500 mg Tablet 1,000 mg PO PRN RF: 0 trazodone 50 mg tablet 50 mg PO BEDTIME PRN (Reason: Sleep) RF: 0 omeprazole 20 mg Capsule,Delayed Release(Dr/Ec) 20 mg PO BID RF: 0 Discharge Orders: Discharge ED (Routine); Ordered 03/18/21 Ordered By: Rex Frost Referrals: Enio Harris MD [Primary Care Provider] - Discharge Diet: Clear Liquid Discharge Activity: Limit activity as instructed Patient Instructions: Opioid Safety Activity Restrictions/Additional Instructions: Follow-up with your primary care doctor within the week. Return if you have further problems. Coding Level of Care Code ED Plastering Contractor for T[facility] Delgado
[2021-03-18 08:47] VITALS: BP 131/71; PULSE 79; RESP 12; TEMP 36.7; O2SAT 96
--- NOTE | 2021-03-18 09:03 | CT_ITS ---
WS: [id number] CT ABDOMEN PELVIS TECHNIQUE: Contrast-enhanced CT of the abdomen and pelvis with coronal and sagittal reformatted image s. CLINICAL INFORMATION: abd pain COMPARISON: CT October 22, 2020 DLP: 1096.[address] scans at [facility] use at least one of these dose optimization techniques: automat ed exposure control; mA and/or kV adjustment per patient size (includes targeted exams where dose is matched to clinical indication); or iterative reconstruction. FINDINGS: Diffuse fatty infiltration the liver. Normal portal vein and splenic vein. Mild hepatomegaly. Normal spleen. Normal GE junction. Lung bases are well aerated. Adrenal glands are normal. Normal renal pare nchymal enhancement. No hydronephrosis. Tiny left renal cysts. Normal caliber abdominal aorta. Prior appendectomy. Tiny fat-containing umbilical hernia. Sigmoid diverticulosis. Mild diffuse thicke aviva with submucosal enhancement involving the descending colon extending from the splenic flexure to the sigmoid colon. Recommend correlation for infectious or inflammatory colitis. No evidence of smal l or large bowel obstruction. Diffuse mucosal enhancement involving the stomach and proximal duodenum can be seen with gastroduodenitis CT/CT abdomen pelvis w con* 30330 IMPRESSION: 1. Mild diffuse thickening of the descending colon extending from the hepatic flexure through the sigmoid colon suspicious for infectious or inflammatory col itis. This is similar to the prior examination October 22, 2020 2. Diffuse mucosal thickening and enhancement involving the stomach and proxim al duodenum suspicious for gastroduodenitis. This was also present previously. 3. Mild diffuse fatty infiltration of the liver. 4. No hydronephrosis in either kidney. 5. No other significant findings.
[2021-03-18] MEDS: ondansetron 2 mg/ML SDV 2 mL 4 MG IVP (09:22)
[2021-03-18] MEDS: sodium chloride 0.9% 1,000 ML 999 ML IV (09:33)
[2021-03-18] MEDS: iohexol 300 mg/mL 100 mL Btl IV (09:44)
[2021-03-18 09:55] VITALS: BP 129/77; PULSE 76; RESP 14; O2SAT 95
[2021-03-18 10:00] VITALS: BP 116/56; PULSE 78; RESP 12; TEMP 36.4; O2SAT 100
[2021-03-18 10:03] LABS: Alanine Aminotransferase 22 U/L (0-41); Albumin Level 4.6 g/dL (3.5-5.2); Alkaline Phosphatase 98 IU/L (40-130); Blood Urea Nitrogen 15 mg/dL (6-20); Calcium 8.9 mg/dL (8.5-10.5); Carbon Dioxide 22 mmol/L (22-29); Chloride 104 mmol/L (98-107); Globulin 2.4 g/dL (1.3-4.6); Glomerular Filtration Rate 126.9 mL/min (90-130); Glucose 84 mg/dL (65-115); Lipase 42 U/L (13-60); Osmolality Calculated 290 mOsm/kg (285-295); Sodium 140 mmol/L (136-145); Total Bilirubin 0.3 mg/dL (0.15-1.2)
[2021-03-18 10:14] LABS: Basophils % 0.4 %; Eosinophils # 0.2 10^3/uL (0.0-0.8); Eosinophils % 3.1 %; Hematocrit 45.9 % (42.0-52.0); Hemoglobin 15.7 g/dL (11.7-16.6); Lymphocytes # 1.9 10^3/uL (0.8-4.8); Lymphocytes % 25.2 %; Mean Corpuscular HGB Conc 34.2 g/dL (30.0-36.0); Mean Corpuscular Hemoglobin 32.6 pg (28.0-34.0); Mean Corpuscular Volume 95.4 fL (80-94); Mean Platelet Volume 10.6 fL (7.4-10.4); Monocytes # 0.6 10^3/uL (0.2-0.9); Monocytes % 7.4 %; Neutrophils # 4.91 10^3/uL (1.8-7.7); Neutrophils % 63.6 %; Nucleated Red Blood Cells % 0 %; Platelet Count 201 10^3/cmm (130-400); Red Blood Count 4.81 10^6/uL (4.1-5.3); Red Cell Distribution Width 13.2 % (12.1-15.1); White Blood Count 7.7 10^3/uL (4.0-10.0)
[2021-03-18 10:21] LABS: Anion Gap 18.2 (5-19); Aspartate Amino Transferase 29 U/L (0-40); Potassium 4.2 mmol/L (3.5-5.1)
[2021-03-18 11:05] VITALS: BP 122/73; PULSE 73; RESP 18; O2SAT 97
[2021-03-18 11:11] LABS: Add Urine Microscopic? NO; Charge for UA Resulting for Rev
[2021-03-18 11:28] LABS: Urine Appearance Clear (CLEAR); Urine Color Yellow (Yellow); pH Urine 5 (5-7)
[2021-03-18 11:29] LABS: Bilirubin Urine Neg (Negative); Blood Urine Neg (Negative); Glucose Urine UA Norm (Normal); Ketones Urine Negative (Negative); Leukocyte Esterase Urine Negative (Negative); Nitrate Urine Negative (Negative); Protein Urine Neg (Negative); Urobilinogen Urine Norm (Negative)
[2021-03-18 11:55] VITALS: BP 121/82; PULSE 75; RESP 16; O2SAT 97
== END 2021-03-18 11:53 | disposition home or self-care (01) ==
PROVIDERS: Emergency Provider Family Medicine; PCP Family Medicine
DX: K51.90 Ulcerative colitis, unspecified, without complications (principal); F17.210 Nicotine dependence, cigarettes, uncomplicated
CPT/HCPCS: 36415; 74177; 80053; 81003; 83690; 85025; 96361; 96374; 99284; J2405; J7030; Q9967

== ENCOUNTER 2021-04-23 21:21 | Emergency (ER) | payer SELFPAY ==
[2021-04-23 21:26] VITALS: BP 125/85; PULSE 83; RESP 19; TEMP 36.6; O2SAT 98; BMI 26.6
--- NOTE | 2021-04-23 21:39 | ED_ITS ---
HPI - Headache General: Chief Complaint: Headache Stated Complaint: Migraine Headache Time Seen by Provider: 04/23/21 21:35 History of Present Illness: HPI Narrative: Patient is a 36-year-old male comes to the ED with a migraine headache. Symptoms started this morning when he woke up. He says he has not had a migraine headache like this before. Says he also has some muscular neck pain that he is been dealing with for the past couple months as well. He rates his headache a 7 out of 10 and says that it feels like it is right behind the eyes. He endorses photophobia and, nausea and had one episode of emesis today. Denies any head trauma or injury to cause acute headache. He rates his neck pain about an 8 out of 10 and he says it hurts with range of motion. Denies any injury or trauma to neck and says that this has been a chronic issue. Denies any vision changes, chest pain, shortness of breath, abdominal pain, bladder or bowel symptoms, numbness tingling or weakness to 1 side of face or extremities. Associated symptoms: Reports nausea and vomiting; Deny chest pain, fever(s) or rash Review of Systems Const: Denies: fever(s), chills or fatigue Eyes: Reports: photophobia; Denies: change in vision or eye discomfort ENMT: Denies: throat pain, odynophagia, nasal discharge or nasal congestion Card: Denies: chest pain, palpitations, edema, swelling of feet/ankles, dyspnea on exertion or orthopnea Resp: Denies: dyspnea, productive cough or non-productive cough GI: Reports: nausea and vomiting; Denies: abdominal pain, diarrhea, constipation or hematochezia : Denies: flank pain, difficulty urinating, dysuria or hematuria Musc: Denies: neck pain, back pain or extremity swelling Skin/Breast: Denies: rash or new lesions Neuro: Reports: headache(s); Denies: numbness in extremities or weakness in extremities PFS ED PFSH: Social History Smoking and tobacco status: current every day smoker Physical Exam Const: COMMON NORMALS: no acute distress, patient oriented x3, healthy appearing and alert GENERAL APPEARANCE: cooperative HENMT: COMMON NORMALS: normocephalic HEAD & SCALP: normocephalic MOUTH: Normal oral and palatal mucosa present THROAT: posterior oropharynx normal and uvula midline Eye: COMMON NORMALS: Equal, round and reactive pupils present, EOMs intact bilaterally and conjunctivae normal CONJUNCTIVA: Yes conjunctivae normal PUPIL: Yes Equal, round and reactive pupils present Neck/C-Spine: COMMON NORMALS: supple and no meningeal signs GENERAL: Yes normal visual inspection CERVICAL SPINE: Yes pain with cervical ROM, No Cervical spine tenderness, Yes Paracervical muscle tenderness bilateral and Yes Trapezius muscle tenderness bilateral Resp: COMMON NORMALS: normal respiratory effort, No retractions, No use of accessory muscles and clear to auscultation bilaterally AUSCULTATION: clear to auscultation bilaterally Cardio: COMMON NORMALS: regular rate, regular rhythm, S1 normal heart sound present, S2 normal heart sound present, No gallops present (Cardio), No clicks present (Cardio), No murmurs present (Cardio) and Peripheral pulses 2+ throughout RATE: regular rate RHYTHM: regular rhythm HEART SOUNDS: S1 normal heart sound present and S2 normal heart sound present PERIPHERAL PULSES: Peripheral pulses 2+ throughout GI: COMMON NORMALS: Normal to inspection, nondistended, normoactive bowel sounds present, Soft to palpation, non-tender and no masses PALPATION: Yes Soft to palpation : COMMON NORMALS: Yes no CVA tenderness BLADDER/KIDNEY EXAM: Yes no CVA tenderness Back/Pelvis: COMMON NORMALS: no CVA tenderness Extremity: COMMON NORMALS: normal to inspection Neuro: COMMON NORMALS: patient oriented x3, CN's II-XII intact bilaterally, moves all extremities, no focal motor deficits and no sensory deficits noted SENSORIUM/ORIENTATION: Yes alert MENINGEAL SIGNS: Yes no meningeal signs COORDINATION/BALANCE: [id number] test normal SPEECH: speech normal SENSORY EXAM: Yes extremities (intact) MOTOR EXAM: 5/5 motor strength present throughout and Pronator motor function not present COORDINATION: [id number]-ucse test normal Skin: GENERAL SKIN EXAM: dry skin Course Reevaluation(s): Reevaluation #1: After patient received IV medications his headache is almost completely resolved. He did have a little bit of anxiety after getting Reglan which I think was a reaction to the Reglan. After approximately 5 or so minutes he was able to calm down and he felt better. His vitals were stable throughout his acute anxiety attack. Time: 22:44 Vital Signs: Vital signs: Vital Signs Temperature 98.2 F 04/23/21 22:04 Pulse Rate 71 04/23/21 22:04 Respiratory Rate 20 H 04/23/21 22:04 Blood Pressure 120/82 04/23/21 22:04 Pulse Oximetry 96 04/23/21 22:04 MDM - Headache MDM Narrative: Medical decision making narrative: Patient is a 36-year-old male comes to the ED with a migraine and some neck muscle pain. He endorses some nausea and photophobia. Denies any injury or trauma to cause symptoms. Vitals are stable patient appears nontoxic and in no acute distress. Neuro exam is normal and no deficits seen. He has some paracervical muscle tenderness. Head CT showed no acute findings. Patient was given IV fluids and migraine cocktail meds and has headache improved greatly. Patient was diagnosed with migraine headache and musculoskeletal neck pain and discharged home with a prescription of Flexeril. He was told to follow-up with his PCP in 7 to 10 days for reevaluation. Return to ED precautions given. Patient understood and agree with plan. Imaging Data^: CT Head: Attestation: I personally reviewed and interpreted this imaging study as follows: Radiologist's impression: [address] [address] [address] Scan Report Signed Patient: Jeremy Rueda Unit #: [id number] : 1985 Age/Sex: 36 / M ADM Date: 04/23/21 Loc: ER Room/Bed: Attending Dr: Ordering Provider/Ordering MD: Raffaele Forbes Date of Service: 04/23/21 Procedure(s): CT head wo con* [id number] Accession Number(s): [id number] Report Number: [id number] PROCEDURE INFORMATION: Exam: CT Head Without Contrast Exam date and time: 04/23/2021 9:49 PM Age: 36 years old Clinical indication: Pain; Headache; Migraine; Additional info: First time migraine TECHNIQUE: Imaging protocol: Computed tomography of the head without contrast. Radiation optimization: All CT scans at this facility use at least one of these dose optimization techniques: automated exposure control; mA and/or kV adjustment per patient size (includes targeted exams where dose is matched to clinical indication); or iterative reconstruction. COMPARISON: No relevant prior studies available. RADIATION DOSE METRICS: Total DLP (mGy-cm): 835.1 FINDINGS: Brain: Normal. No hemorrhage. Unremarkable white matter. No mass effect. Cerebral ventricles: No ventriculomegaly. Paranasal sinuses: Visualized sinuses are unremarkable. No fluid levels. Mastoid air cells: Visualized mastoid air cells are well aerated. Bones/joints: Unremarkable. No acute fracture. Soft tissues: Unremarkable. CT/CT head wo con* [id number] IMPRESSION: No acute intracranial abnormality. Radiation Dose CTDIVOL = (mGy): DLP = 835.1 (mGy-cm) Dictated By: Sudhakar David Signed By: Sudhakar David Signed Date/Time: 04/23/212232 DD/ 31 Discharge Plan Discharge Patient Disposition: Home Clinical Impression: Neck pain, musculoskeletal Migraine Qualifiers: Migraine type: without aura Status migrainosus presence: without status migrainosus Intractability: not intractable Qualified Code(s): G43.009 - Migraine without aura, not intractable, without status migrainosus Condition: Stable Prescriptions: New cyclobenzaprine 10 mg tablet 10 mg PO BID PRN (Reason: muscle spasm) Qty: 20 RF: 0 No Action Tylenol Extra Strength 500 mg Tablet 1,000 mg PO PRN RF: 0 trazodone 50 mg tablet 50 mg PO BEDTIME PRN (Reason: Sleep) RF: 0 prednisone 20 mg tablet 20 mg PO TID Qty: 30 RF: 0 hydrocodone-acetaminophen 5-325 mg tablet 1 tab PO Q6H PRN (Reason: pain) Qty: 25 RF: 0 Zofran 4 mg tablet 4 mg PO Q6H PRN (Reason: nausea and vomiting) Qty: 20 RF: 0 omeprazole 20 mg Capsule,Delayed Release(Dr/Ec) 20 mg PO BID RF: 0 Discharge Orders: Discharge ED (Routine); Ordered 04/23/21 Ordered By: Raffaele Forbes Referrals: Enio Harris MD [Primary Care Provider] - Discharge Diet: Regular Discharge Activity: Increase activity as tolerated Patient Instructions: Migraine Headache (ED) Activity Restrictions/Additional Instructions: Follow-up with medical provider as directed in 7 to 10 days for reevaluation. Take medications as prescribed. Cyclobenzaprine is a muscle relaxer and can cause some drowsiness so take at night before going to bed. Take [id number] Tylenol or Motrin for any reoccurring headaches. Return to the ER or your medical provider if condition worsens. Please read and understand discharge instructions. Thank you for choosing [facility] for your healthcare needs today. Please realize this is an emergency room and that we are providing you with a medical screening exam and this may not be complete and all inclusive of all the testing and or work up that you may need to determine your ailment or severity of your illness. It is very important that you follow up as instructed or that you return to the Emergency Department should you have concerns or if your condition changes or worsens in any way. Coding Level of Care Code ED Wax Cutter for Tc Delgado Exam Comprehensive
--- NOTE | 2021-04-23 21:49 | CTR_ITS ---
PROCEDURE INFORMATION: Exam: CT Head Without Contrast Exam date and time: 04/23/2021 9:49 PM Age: 36 years old Clinical indication: Pain; Headache; Migraine; Additional info: First time migraine TECHNIQUE: Imaging protocol: Computed tomography of the head without contrast. Radiation optimization: All CT scans at this facility use at least one of these dose optimization techniques: automated exposure control; mA and/or kV adjustment per patient size (includes targeted exams where dose is matched to clinical indication); or iterative reconstruction. COMPARISON: No relevant prior studies available. RADIATION DOSE METRICS: Total DLP (mGy-cm): 835.1 FINDINGS: Brain: Normal. No hemorrhage. Unremarkable white matter. No mass effect. Cerebral ventricles: No ventriculomegaly. Paranasal sinuses: Visualized sinuses are unremarkable. No fluid levels. Mastoid air cells: Visualized mastoid air cells are well aerated. Bones/joints: Unremarkable. No acute fracture. Soft tissues: Unremarkable. CT/CT head wo con* [id number] IMPRESSION: No acute intracranial abnormality. Radiation Dose CTDIVOL = (mGy): DLP = 835.1 (mGy-cm)
[2021-04-23 22:04] VITALS: BP 120/82; PULSE 71; RESP 20; TEMP 36.8; O2SAT 96
[2021-04-23] MEDS: sodium chloride 0.9% 500 ML 999 ML IV (22:24)
[2021-04-23] MEDS: diphenhydrAMINE 50 mg/mL SDV 1mL 25 MG IVP (22:25)
[2021-04-23] MEDS: metoclopramide 5 mg/mL SDV 2 mL 10 MG IVP (22:26)
[2021-04-23] MEDS: dexamethasone 10 mg/mL INJ IVP (22:29)
[2021-04-23] MEDS: ketorolac 30 mg/mL INJ IVP (22:32)
--- NOTE | 2021-04-23 22:35 | PC.NURSE ---
PATIENT GIVEN MEDICATION. PATIENT STATES FEELING HOT. PATIENT APPEARS ANXIOUS AND WANTS TO STAND. PATIENT PLACED ON BP MONITOR AND PULSE OX. VITAL SIGNS 135/79, 96%, HR 99. PATIENT STANDING AT BEDSIDE WITH FRIEND. PROVIDER NOTIFIED.
--- NOTE | 2021-04-23 22:47 | PC.NURSE ---
ADVERSE REACTION TO REGLAN NOTED. PATIENT HYPERVENTILATED IN THE ROOM AND FELT HOT. PATIENT SWEATING AND PACING AT THE BEDSIDE. PATIENT FLUIDS PLACED ON IV PUMP AND PATIENT FELT MORE IN CONTROL PACING THE ROOM. PROVIDER AT BEDSIDE MONITORING PATIENT.
== END 2021-04-23 23:35 | disposition home or self-care (01) ==
PROVIDERS: Emergency Provider Physician Assistant; PCP Family Medicine
DX: G43.009 Migraine without aura, not intractable, without status migrainosus (principal); M54.2 Cervicalgia; F17.210 Nicotine dependence, cigarettes, uncomplicated
CPT/HCPCS: 70450; 96374; 96375; 99283; J1100; J1200; J1885; J2765; J7040

== ENCOUNTER 2022-05-01 17:48 | Emergency (ER) | payer OTHER, SELFPAY ==
[2022-05-01 17:58] VITALS: BP 124/79; PULSE 73; RESP 16; TEMP 36.8; O2SAT 97; BMI 29.5
--- NOTE | 2022-05-01 18:22 | W.ED.DENTAL ---
HPI - Dental/Oral General: Chief complaint: Dental/Oral Stated complaint: Jaw pain, left side Time Seen by Provider: 05/01/22 18:20 History of Present Illness: 37-year-old male patient comes in today for complaints of sensation of suture to the left upper jaw at the extraction point of a molar and wisdom tooth. Patient appears nontoxic. Patient had recently had the tooth removed last week. Patient is presently on antibiotics. Associated symptoms: Denies fever(s) Review of Systems Const: Denies: fever(s) ENMT: Reports: dental pain PFSH ED PFSH: Medical History GERD without esophagitis Social History Smoking and tobacco status: current every day smoker Physical Exam Const: COMMON NORMALS: alert HENMT: COMMON NORMALS: normocephalic HEAD & SCALP: normocephalic TEETH & GINGIVA: Yes other (Open socket to the left upper jaw.) Neck/C-Spine: COMMON NORMALS: full ROM Resp: COMMON NORMALS: normal respiratory effort Cardio: COMMON NORMALS: regular rate RATE: regular rate Extremity: COMMON NORMALS: normal to inspection Neuro: SENSORIUM/ORIENTATION: Yes alert Skin: COMMON NORMALS: no rashes or lesions noted GENERAL SKIN EXAM: no rashes or lesions noted Course Vital Signs: Vital signs: Vital Signs Temperature 98.3 F 05/01/22 17:58 Pulse Rate 73 05/01/22 17:58 Respiratory Rate 16 05/01/22 17:58 Blood Pressure 124/79 05/01/22 17:58 Pulse Oximetry 97 05/01/22 17:58 Oxygen Delivery Me thod 05/01/22 17:58 MDM - Dental/Oral Medical Decision Making 37-year-old male patient comes in today with complaints of discomfort to the extraction point of a molar and wisdom tooth in the left upper jaw. Patient is wanting to have the suture removed because it is irritated. On exam I note the open sockets from the extraction but no sutures were noted. No significant redness or other abnormality was noted. Differential diagnosis includes but not limited to retained suture, dry socket syndrome, dental abscess. No signs of significant infection was noted. No suture was left intact. Recommend patient follow-up with dentist for further evaluation and treatment. Patient reported that he has pain meds and antibiotic. Discharge Plan Discharge Patient Disposition: Home Clinical Impression: Dry tooth socket Condition: Stable Prescriptions: No Action mesalamine [Lialda] 1.2 gram tablet,delayed release (DR/EC) 4.8 g PO DAILY 56 Days Qty: 120 2RF omeprazole 20 mg capsule,delayed release(DR/EC) 20 mg PO DAILY 60 Days Qty: 60 3RF amoxicillin 875 mg tablet 875 mg PO BID Qty: 14 0RF diclofenac sodium 75 mg tablet,delayed release (DR/EC) See Rx Instructions .ROUTE .COMPLEX Qty: 60 2RF Dose Instruction: TAKE 1 TABLET BY MOUTH TWICE DAILY NEEDED FOR PAIN *take with food* Rx Instructions: TAKE 1 TABLET BY MOUTH TWICE DAILY NEEDED FOR PAIN *take with food* hydrocodone-acetaminophen 5-325 mg tablet 1 tab PO Q6H PRN (Reason: pain) 7 Days Qty: 24 0RF Tylenol Extra Strength 500 mg Tablet 1,000 mg PO PRN Discharge Orders: Discharge ED (Routine); Ordered 05/01/22 Ordered By: Rd Jerez Referrals: Enio Harris MD [Primary Care Provider] - Discharge Diet: Usual diet Discharge Activity: Increase activity as tolerated Patient Instructions: Dry Socket (ED) Activity Restrictions/Additional Instructions: Follow-up with dentist for further treatment and evaluation. Continue antibiotics as directed. Coding Level of Care Code ED Casserole Preparer for Tc Delgado
--- NOTE | 2022-05-01 18:39 | PC.NURSE ---
Patient seen by GUM MIXER and left before receiving discharge instructions, patient not in VF room, not seen in [facility]
--- NOTE | 2022-05-01 18:39 | PC.NURSE ---
Nursing assessment not completed as patient seen and dc'd before assessment
== END 2022-05-01 18:41 | disposition home or self-care (01) ==
PROVIDERS: Emergency Provider Nurse Practitioner Family; PCP Family Medicine
DX: M27.3 Alveolitis of jaws (principal); F17.210 Nicotine dependence, cigarettes, uncomplicated
CPT/HCPCS: 99282

== ENCOUNTER → 2022-06-09 15:22 | Outpatient (BNVA) | payer OTHER, SELFPAY | PROVIDERS: PCP Family Medicine; Visit Provider Family Medicine | DX: K51.90 Ulcerative colitis, unspecified, without complications (principal); K92.1 Melena | CPT/HCPCS: 80053; 85025 ==

== ENCOUNTER 2022-08-11 19:08 | Emergency (ER) | payer OTHER, SELFPAY ==
[2022-08-11 19:27] VITALS: BP 144/98; PULSE 97; RESP 24; TEMP 36.3; O2SAT 96; BMI 29.0
--- NOTE | 2022-08-11 19:34 | CTR_ITS ---
PROCEDURE INFORMATION: Exam: CT Abdomen And Pelvis With Contrast Exam date and time: 08/11/2022 7:47 PM Age: 37 years old Clinical indication: Abdominal pain; Prior surgery; Surgery type: Appy; Patient HX: C/O n/v with diarrhea. History of ulverative colitis. ; Additional info: Abd pain TECHNIQUE: Imaging protocol: Computed tomography of the abdomen and pelvis with contrast. Radiation optimization: All CT scans at this facility use at least one of these dose optimization techniques: automated exposure control; mA and/or kV adjustment per patient size (includes targeted exams where dose is matched to clinical indication); or iterative reconstruction. Contrast material: OMNI 350; Contrast volume: 100 ml; Contrast route: INTRAVENOUS (IV); COMPARISON: CT abdomen pelvis w con* [id number] 03/18/2021 9:40 AM RADIATION DOSE METRICS: Total DLP (mGy-cm): 644.93 FINDINGS: Liver: Mild hepatic steatosis. Gallbladder and bile ducts: Normal. No calcified stones. No ductal dilation. Pancreas: Normal. No ductal dilation. Spleen: Normal. No splenomegaly. Adrenal glands: Normal. No mass. Kidneys and ureters: Left kidney subcentimeter cyst, negative for follow-up advised. Stomach and bowel: Prominent fluid and wall thickening with mucosal enhancement throughout the stomach, small bowel and colon consistent with a gastroenterocolitis, in the appropriate clinical setting. Appendix: No evidence of appendicitis. Intraperitoneal space: Unremarkable. No free air. No significant fluid collection. Vasculature: Unremarkable. No abdominal aortic aneurysm. Lymph nodes: Unremarkable. No enlarged lymph nodes. Urinary bladder: Unremarkable as visualized. Reproductive: Unremarkable as visualized. Bones/joints: Unremarkable. No acute fracture. Soft tissues: Unremarkable. CT/CT abdomen pelvis w con* [id number] IMPRESSION: 1. Prominent fluid and wall thickening with mucosal enhancement throughout the stomach, small bowel and colon consistent with a gastroenterocolitis, in the appropriate clinical setting. 2. Mild hepatic steatosis. 3. Left kidney subcentimeter cyst, negative for follow-up advised. COMMENTS: Consistent with the [employer]'s Incidental Findings Committee white paper (J Am Meena Radiol 2018): Any incidental renal lesion less than 1 cm or classified as too small to characterize, or any incidental cystic renal lesion characterized as simple-appearing, is likely benign. No follow-up imaging is recommended for these lesions per consensus recommendations based on imaging criteria.
--- NOTE | 2022-08-11 19:35 | ECG_ITS ---
[facility] Test Date: 2022-08-11 Pat Name: Jeremy Rueda Department: Room: Gender: Male [employer]: : 1985 Requested By: Bere Smith Order Number: [id number] Kathy MD: Antonietta Rodas M.D. Measurements Intervals [place] Rate: 93 P: 20 WI: 151 QRS: 22 QRSD: 89 T: 41 QT: 344 QTc: 430 Interpretive Statements SINUS RHYTHM No previous ECG available for comparison Electronically Signed On 08-12-2022 9:27:18 CAR RUNNER by Antonietta Rodas M.D. [id number]
--- NOTE | 2022-08-11 19:36 | W.ED.ABDPA2 ---
HPI - Abdominal Pain General: Chief Complaint: Abdominal Pain Stated Complaint: abd pain, N/V/D Time Seen by Provider: 08/11/22 19:11 Source: patient Mode of arrival: ambulatory Limitations: no limitations History of Present Illness: 37-year-old male who states he been having abdominal pain over the last day. He states its diffuse in nature does have a history of ulcerative colitis he has had some loose stools had nausea no vomiting states pain is currently a 6 out of 10 denies any fever he denies any radiation of his pain. Associated Symptoms: Denies chills, dysuria and fever(s) Review of Systems Const: Denies: fever(s), chills, body aches or change in appetite Eyes: Denies: blurry vision or eye discomfort ENMT: Denies: throat pain or dental pain Card: Denies: chest pain Resp: Denies: dyspnea GI: Reports: abdominal pain : Denies: dysuria Musc: Denies: neck pain or back pain Skin/Breast: Denies: rash Neuro: Denies: headache(s) Psych: Denies: depression Theron/Lymph: Denies: easy bruising All/Imm: Denies: urticaria PFSH ED PFSH: Medical History GERD without esophagitis Social History Smoking and tobacco status: current every day smoker Physical Exam Const: COMMON NORMALS: no acute distress, patient oriented x3 and healthy appearing HENMT: COMMON NORMALS: normocephalic and atraumatic HEAD & SCALP: normocephalic and atraumatic Eye: COMMON NORMALS: Equal, round and reactive pupils present and EOMs intact bilaterally PUPIL: Yes Equal, round and reactive pupils present Neck/C-Spine: COMMON NORMALS: full ROM and supple Chest: COMMONS NORMALS: normal inspection of the chest and normal palpation of entire chest wall Resp: COMMON NORMALS: normal respiratory effort, No retractions, No use of accessory muscles and clear to auscultation bilaterally AUSCULTATION: clear to auscultation bilaterally Cardio: COMMON NORMALS: regular rate, regular rhythm and No murmurs present (Cardio) RATE: regular rate RHYTHM: regular rhythm GI: COMMON NORMALS: Normal to inspection, nondistended, normoactive bowel sounds present, Soft to palpation, non-tender and no masses PALPATION: Yes Soft to palpation Extremity: COMMON NORMALS: normal to inspection and full ROM Neuro: COMMON NORMALS: patient oriented x3, moves all extremities and no focal motor deficits Psych: COMMON NORMALS: mental status grossly normal, Normal thought process present and cooperative THOUGHT PROCESS: Normal thought process present Skin: COMMON NORMALS: no rashes or lesions noted and no wounds GENERAL SKIN EXAM: no rashes or lesions noted Course Vital Signs: Vital signs: Vital Signs Temperature 97.4 F L 08/11/22 19:27 Pulse Rate 78 08/11/22 20:51 Respiratory Rate 18 08/11/22 20:51 Blood Pressure 148/60 08/11/22 20:51 Pulse Oximetry 98 08/11/22 20:51 Oxygen Delivery Me thod 08/11/22 19:27 MDM - Abdominal Pain Medical Decision Making Patient presents here with abdominal pain likely a colitis we will start him on antibiotics along with pain meds he feels improved here he stable for discharge she is to follow-up with PCP and return if worsening. Lab Data 08/11/22 19:35 08/11/22 19:35 Labs/Radiology: Radiology Impressions Abdomen/Pelvis CT 08/11/22 19:34 IMPRESSION: 1. Prominent fluid and wall thickening with mucosal enhancement throughout the stomach, small bowel and colon consistent with a gastroenterocolitis, in the appropriate clinical setting. 2. Mild hepatic steatosis. 3. Left kidney subcentimeter cyst, negative for follow-up advised. COMMENTS: Consistent with the [employer]'s Incidental Findings Committee white paper (J Am Meena Radiol 2018): Any incidental renal lesion less than 1 cm or classified as too small to characterize, or any incidental cystic renal lesion characterized as simple-appearing, is likely benign. No follow-up imaging is recommended for these lesions per consensus recommendations based on imaging criteria. Laboratory Results WBC 15.3 10^3/uL (4.0-10.0) H 08/11/22 19:35 RBC 5.69 10^6/uL (4.1-5.3) H 08/11/22 19:35 Hgb 18.7 g/dL (11.7-16.6) H 08/11/22 19:35 Hct 55.2 % (42.0-52.0) H 08/11/22 19:35 MCV 97.0 fl (80-94) H 08/11/22 19:35 MCH 32.9 pg (28.0-34.0) 08/11/22 19:35 MCHC 33.9 g/dL (30.0-36.0) 08/11/22 19:35 RDW 15.0 % (12.1-15.1) 08/11/22 19:35 Plt Count 291 10^3/cmm (130-400) 08/11/22 19:35 MPV 10.4 fL (7.4-10.4) 08/11/22 19:35 Neut % (Auto) 78.2 % 08/11/22 19:35 Lymph % (Auto) 13.4 % 08/11/22 19:35 [place] % (Auto) 6.2 % 08/11/22 19:35 Eos % (Auto) 1.6 % 08/11/22 19:35 Baso % (Auto) 0.2 % 08/11/22 19:35 Neut # (Auto) 11.98 10^3/uL (1.8-7.7) H 08/11/22 19:35 Lymph # (Auto) 2.1 10^3/uL (0.8-4.8) 08/11/22 19:35 [place] # (Auto) 1.0 10^3/uL (0.2-0.9) H 08/11/22 19:35 Eos # (Auto) 0.3 10^3/uL (0.0-0.8) 08/11/22 19:35 Baso # (Auto) 0.0 10^3/uL (0.0-0.1) 08/11/22 19:35 Nucleated RBC % (auto) 0 % 08/11/22 19:35 Nucleated RBCs # 0.0 /100WBC 08/11/22 19:35 Sodium 142 mmol/L (136-145) 08/11/22 19:35 Potassium 4.0 mmol/L (3.5-5.1) 08/11/22 19:35 Chloride 103 mmol/L (98-107) 08/11/22 19:35 Carbon Dioxide 25 mmol/L (22-29) 08/11/22 19:35 Anion Gap 18.0 (5-19) 08/11/22 19:35 BUN 13 mg/dL (6-20) 08/11/22 19:35 Creatinine 0.6 mg/dL (0.7-1.2) L 08/11/22 19:35 GFR Calculation 150.8 mL/min (90-130) H 08/11/22 19:35 Glucose 86 mg/dL (65-115) 08/11/22 19:35 Calculated Osmolality 293 mOsm/kg (285-295) 08/11/22 19:35 Calcium 10.5 mg/dL (8.5-10.5) 08/11/22 19:35 Total Bilirubin 0.5 mg/dL (0.15-1.2) 08/11/22 19:35 AST 35 U/L (0-40) 08/11/22 19:35 ALT 47 U/L (0-41) H 08/11/22 19:35 Alkaline Phosphatase 168 U/L (40-130) H 08/11/22 19:35 Total Protein 8.7 g/dL (6.6-8.7) 08/11/22 19:35 Albumin 5.1 g/dL (3.5-5.2) 08/11/22 19:35 Globulin 3.6 g/dL (1.3-4.6) 08/11/22 19:35 Lipase 50 U/L (13-60) 08/11/22 19:35 Discharge Plan Discharge Patient Disposition: Home Clinical Impression: Abdominal pain, Colitis Condition: Stable Prescriptions: New hydrocodone-acetaminophen 5-325 mg tablet 1 tab PO Q6H PRN (Reason: pain) Qty: 14 0RF metronidazole 500 mg tablet 500 mg PO Q8H 7 Days Qty: 21 0RF Cipro 500 mg tablet 500 mg PO BID Qty: 14 0RF ondansetron 4 mg tablet,disintegrating 4 mg PO Q6H PRN (Reason: nausea and vomiting) Qty: 14 0RF No Action omeprazole 20 mg capsule,delayed release(DR/EC) 20 mg PO DAILY 60 Days Qty: 60 3RF diclofenac sodium 75 mg tablet,delayed release (DR/EC) See Rx Instructions .ROUTE .COMPLEX Qty: 60 2RF Dose Instruction: TAKE 1 TABLET BY MOUTH TWICE DAILY NEEDED FOR PAIN *take with food* Rx Instructions: TAKE 1 TABLET BY MOUTH TWICE DAILY NEEDED FOR PAIN *take with food* mesalamine [Lialda] 1.2 gram tablet,delayed release (DR/EC) 4.8 g PO DAILY 56 Days Qty: 120 2RF hydrocodone-acetaminophen 5-325 mg tablet 1 tab PO .bed time PRN (Reason: pain) 30 Days Qty: 30 0RF Tylenol Extra Strength 500 mg Tablet 1,000 mg PO PRN Discharge Orders: Discharge ED (Routine); Ordered 08/11/22 Ordered By: Bere Simth Referrals: Enio Harris MD [Primary Care Provider] - 1-3 days Discharge Diet: Advance as tolerated Discharge Activity: Resume usual activity Patient Instructions: Abdominal Pain (ED), Colitis (ED), Opioid Safety Coding Level of Care Code ED Insurance Claims Examiner for Tc Fwd Exam Comprehensive
[2022-08-11 19:48] LABS: Basophils % 0.2 %; Eosinophils # 0.3 10^3/uL (0.0-0.8); Eosinophils % 1.6 %; Hematocrit 55.2 % (42.0-52.0); Hemoglobin 18.7 g/dL (11.7-16.6); Lymphocytes # 2.1 10^3/uL (0.8-4.8); Lymphocytes % 13.4 %; Mean Corpuscular HGB Conc 33.9 g/dL (30.0-36.0); Mean Corpuscular Hemoglobin 32.9 pg (28.0-34.0); Mean Platelet Volume 10.4 fL (7.4-10.4); Monocytes % 6.2 %; Neutrophils # 11.98 10^3/uL (1.8-7.7); Neutrophils % 78.2 %; Nucleated Red Blood Cells % 0 %; Platelet Count 291 10^3/cmm (130-400); Red Blood Count 5.69 10^6/uL (4.1-5.3); White Blood Count 15.3 10^3/uL (4.0-10.0)
[2022-08-11] MEDS: iohexol 350 mg/mL 500 mL Btl (per mL) IV (19:58)
[2022-08-11] MEDS: ondansetron 2 mg/ML SDV 2 mL 4 MG IVP (19:59)
[2022-08-11] MEDS: sodium chloride 0.9% 1,000 ML 999 ML IV (19:59)
[2022-08-11] MEDS: morphine 4 mg/mL SDV 1 mL IVP (19:59)
[2022-08-11 20:09] LABS: Alanine Aminotransferase 47 U/L (0-41); Albumin Level 5.1 g/dL (3.5-5.2); Alkaline Phosphatase 168 U/L (40-130); Blood Urea Nitrogen 13 mg/dL (6-20); Calcium 10.5 mg/dL (8.5-10.5); Carbon Dioxide 25 mmol/L (22-29); Chloride 103 mmol/L (98-107); Globulin 3.6 g/dL (1.3-4.6); Glomerular Filtration Rate 150.8 mL/min (90-130); Glucose 86 mg/dL (65-115); Lipase 50 U/L (13-60); Osmolality Calculated 293 mOsm/kg (285-295); Sodium 142 mmol/L (136-145); Total Bilirubin 0.5 mg/dL (0.15-1.2); Total Protein 8.7 g/dL (6.6-8.7)
[2022-08-11 20:17] LABS: Aspartate Amino Transferase 35 U/L (0-40)
[2022-08-11 20:28] VITALS: O2SAT 97
[2022-08-11 20:30] VITALS: O2SAT 96
[2022-08-11 20:35] VITALS: BP 147/97; O2SAT 97
[2022-08-11 20:51] VITALS: BP 148/60; PULSE 78; RESP 18; O2SAT 98
== END 2022-08-11 20:57 | disposition home or self-care (01) ==
PROVIDERS: Emergency Provider Emergency Medicine; PCP Family Medicine
DX: K52.9 Noninfective gastroenteritis and colitis, unspecified (principal); F17.210 Nicotine dependence, cigarettes, uncomplicated
CPT/HCPCS: 74177; 80053; 83690; 85025; 93005; 96361; 96374; 96375; 99285; J2270; J2405; J7030; Q9967

== ENCOUNTER → 2022-11-10 14:24 | Outpatient (BNVA) | payer OTHER, SELFPAY | PROVIDERS: PCP Family Medicine; Visit Provider Family Medicine | DX: K51.90 Ulcerative colitis, unspecified, without complications (principal); D75.1 Secondary polycythemia | CPT/HCPCS: 80053; 85025 ==

== ENCOUNTER 2022-12-09 00:18 | Emergency (ER) | payer OTHER, SELFPAY ==
[2022-12-09 00:24] VITALS: BP 145/94; PULSE 95; RESP 18; TEMP 36.6; O2SAT 94
[2022-12-09 00:27] VITALS: BP 145/99; PULSE 93; RESP 17; O2SAT 93
--- NOTE | 2022-12-09 00:28 | ED_ITS ---
HPI - General Adult General: Chief complaint: General Medical Stated complaint: high bp Time Seen by Provider: 12/09/22 00:28 History of Present Illness: 37-year-old male patient comes in today for complaints of elevated blood pressure. Patient had checked his blood pressure at [facility] and it registered 180 systolic. Patient also reported some irregular heartbeat. Patient admits to drinking routinely up to 5-8 drinks a day. Patient denies any chest pain or severe headache. Patient does occasionally have shortness of breath. Associated symptoms: Reports dyspnea (Chronic) and headache(s) (Occasional); Deny chest pain, nausea, rash or vomiting Review of Systems General: Reports: 10 or more systems reviewed and unremarkable except in HPI and below Card: Denies: chest pain Resp: Reports: dyspnea (Chronic) GI: Denies: nausea, vomiting, diarrhea or constipation : Denies: difficulty urinating Musc: Denies: back pain or extremity pain Skin/Breast: Denies: rash Neuro: Reports: headache(s) (Occasional) Psych: Denies: anxiety or depression PFS ED PFSH: Medical History GERD without esophagitis Social History Smoking and tobacco status: current every day smoker Physical Exam Const: COMMON NORMALS: alert HENMT: COMMON NORMALS: normocephalic HEAD & SCALP: normocephalic THROAT: posterior oropharynx normal Neck/C-Spine: COMMON NORMALS: full ROM Resp: COMMON NORMALS: normal respiratory effort and clear to auscultation bilaterally AUSCULTATION: clear to auscultation bilaterally Cardio: COMMON NORMALS: regular rate and regular rhythm JUGULAR VENOUS DISTENTION: no JVD RATE: regular rate RHYTHM: regular rhythm Back/Pelvis: COMMON NORMALS: thoracic and lumbar spine normal to inspection Extremity: COMMON NORMALS: no pedal edema Neuro: SENSORIUM/ORIENTATION: Yes alert Skin: COMMON NORMALS: turgor normal GENERAL SKIN EXAM: turgor normal Course Vital Signs: Vital signs: Vital Signs Temperature 97.8 F 12/09/22 00:24 Pulse Rate 88 12/09/22 01:27 Respiratory Rate 17 12/09/22 01:27 Blood Pressure 123/85 12/09/22 01:27 Pulse Oximetry 95 12/09/22 01:27 Oxygen Delivery Me thod Room Air 12/09/22 00:27 MDM - General Adult Medical Decision Making 37-year-old male patient comes in today for complaints of elevated blood pressure. Patient does report occasional shortness of breath and headaches. Patient denies any chest pain. On exam lungs are clear to auscultation. Heart rates regular. Abdomen soft and nontender. No edema is noted in the extremity. Vital signs are normal except for some mild elevation of blood pressure at 145/94. Differential diagnosis includes uncontrolled hypertension, CHF, anxiety about health, ACS. Laboratory values were unremarkable. Troponin and BNP were both within normal limits. EKG showed no acute cardiac changes. Chest x-ray showed no fluid on the lungs. Patient was given 100 mg of labetalol which brought pressure down to 120 systolic. We will continue patient on labetalol 100 mg twice a day and recommend follow-up with primary care. Patient reported understanding agreed to plan. Lab Data 12/09/22 00:42 12/09/22 00:42 Laboratory Results WBC 12.7 10^3/uL (4.0-10.0) H 12/09/22 00:42 RBC 5.13 10^6/uL (4.1-5.3) 12/09/22 00:42 Hgb 16.4 g/dL (11.7-16.6) 12/09/22 00:42 Hct 47.4 % (42.0-52.0) 12/09/22 00:42 MCV 92.4 fl (80-94) 12/09/22 00:42 MCH 32.0 pg (28.0-34.0) 12/09/22 00:42 MCHC 34.6 g/dL (30.0-36.0) 12/09/22 00:42 RDW 13.6 % (12.1-15.1) 12/09/22 00:42 Plt Count 317 10^3/cmm (130-400) 12/09/22 00:42 MPV 10.1 fL (7.4-10.4) 12/09/22 00:42 Neut % (Auto) 59.3 % 12/09/22 00:42 Lymph % (Auto) 29.6 % 12/09/22 00:42 [place] % (Auto) 6.9 % 12/09/22 00:42 Eos % (Auto) 3.4 % 12/09/22 00:42 Baso % (Auto) 0.2 % 12/09/22 00:42 Neut # (Auto) 7.50 10^3/uL (1.8-7.7) 12/09/22 00:42 Lymph # (Auto) 3.8 10^3/uL (0.8-4.8) 12/09/22 00:42 [place] # (Auto) 0.9 10^3/uL (0.2-0.9) 12/09/22 00:42 Eos # (Auto) 0.4 10^3/uL (0.0-0.8) 12/09/22 00:42 Baso # (Auto) 0.0 10^3/uL (0.0-0.1) 12/09/22 00:42 Nucleated RBC % (auto) 0 % 12/09/22 00:42 Nucleated RBCs # 0.0 /100WBC 12/09/22 00:42 Sodium 142 mmol/L (136-145) 12/09/22 00:42 Potassium 3.8 mmol/L (3.5-5.1) 12/09/22 00:42 Chloride 102 mmol/L (98-107) 12/09/22 00:42 Carbon Dioxide 22 mmol/L (22-29) 12/09/22 00:42 Anion Gap 21.8 (5-19) H 12/09/22 00:42 BUN 9 mg/dL (6-20) 12/09/22 00:42 Creatinine 0.7 mg/dL (0.7-1.2) 12/09/22 00:42 GFR Calculation 126.2 mL/min (90-130) 12/09/22 00:42 Glucose 93 mg/dL (65-115) 12/09/22 00:42 Calculated Osmolality 292 mOsm/kg (285-295) 12/09/22 00:42 Calcium 10.0 mg/dL (8.5-10.5) 12/09/22 00:42 Total Bilirubin 0.2 mg/dL (0.15-1.2) 12/09/22 00:42 AST 40 U/L (0-40) 12/09/22 00:42 ALT 41 U/L (0-41) 12/09/22 00:42 Alkaline Phosphatase 138 U/L (40-130) H 12/09/22 00:42 Troponin T Gen 5 ng/L 7 ng/L (0-15) 12/09/22 00:42 NT-Pro-B Natriuret Pep 36 pg/mL (0-125) 12/09/22 00:42 Total Protein 8.2 g/dL (6.6-8.7) 12/09/22 00:42 Albumin 5.1 g/dL (3.5-5.2) 12/09/22 00:42 Globulin 3.1 g/dL (1.3-4.6) 12/09/22 00:42 EKG Data EKG 1: EKG interpretation date: 12/09/22 EKG interpretation time: 00:45 Prior EKG tracings: not available for review Interpretation: EKG notes sinus rhythm with regular rate at 89 bpm. No ectopy is noted. No prior exam was available for comparison. No significant elevation ST wave. Discharge Plan Discharge Patient Disposition: Home Clinical Impression: Hypertensive urgency Condition: Stable Prescriptions: New labetalol 100 mg tablet 100 mg PO BID Qty: 60 0RF No Action mesalamine [Lialda] 1.2 gram tablet,delayed release (DR/EC) 4.8 g PO DAILY 30 Days Qty: 240 2RF diclofenac sodium 75 mg tablet,delayed release (DR/EC) See Rx Instructions .ROUTE .COMPLEX Qty: 60 2RF Dose Instruction: TAKE 1 TABLET BY MOUTH TWICE DAILY NEEDED FOR PAIN *take with food* Rx Instructions: TAKE 1 TABLET BY MOUTH TWICE DAILY NEEDED FOR PAIN *take with food* omeprazole 20 mg capsule,delayed release(DR/EC) 20 mg PO DAILY 60 Days Qty: 60 3RF Tylenol Extra Strength 500 mg Tablet 1,000 mg PO PRN Discharge Orders: Discharge ED (Routine); Ordered 12/09/22 Ordered By: Rd Jerez Referrals: Enio Harris MD [Primary Care Provider] - Discharge Diet: Usual diet Discharge Activity: Increase activity as tolerated Patient Instructions: DASH Eating Plan (ED), Hypertension (ED) Activity Restrictions/Additional Instructions: Home and rest. Drink plenty of water. Take medication as directed labetalol 100 mg 2 times a day until follow-up with primary care. If you become lightheaded with taking the medication break the tablet in half but continue to twice a day dosing. Try to stop smoking as nicotine-containing products will increase blood pressure. Decrease alcohol consumption to less than 2 drinks a day. Return to ER as needed for worsening symptoms such as severe chest pain, severe shortness of breath, or new concerns. Coding Level of Care Code ED Manager Programming for Tc Delgado
--- NOTE | 2022-12-09 00:35 | ECG_ITS ---
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 Measurements Intervals [place] Rate: 89 P: 40 [place]: 165 QRS: 43 QRSD: 88 T: 32 QT: 344 QTc: 419 Interpretive Statements SINUS RHYTHM PROBABLE INFERIOR MYOCARDIAL INFARCTION , PROBABLY OLD [35 ms Q WAVE IN II/aVF] Compared to ECG 08/11/2022 19:40:50 Myocardial infarct finding now present Electronically Signed On 12-09-2022 7:08:35 CDT by Antonietta Rodas M.D. [email or web address]
--- NOTE | 2022-12-09 00:35 | XRR_ITS ---
PROCEDURE INFORMATION: Exam: XR Chest Exam date and time: 12/09/2022 12:44 AM Age: 37 years old Clinical indication: Other: Hypertension; Additional info: Elevated BP TECHNIQUE: Imaging protocol: Radiologic exam of the chest. Views: 1 view. COMPARISON: CR XR chest 2V* [id number] 02/01/2019 9:54 PM FINDINGS: Lungs: Unremarkable. No consolidation. Pleural spaces: Unremarkable. No pleural effusion. No pneumothorax. Heart/Mediastinum: Unremarkable. No cardiomegaly. Bones/joints: Unremarkable. XR/XR chest 1V portable [id number] IMPRESSION: No acute findings.
[2022-12-09 00:48] LABS: Basophils % 0.2 %; Eosinophils # 0.4 10^3/uL (0.0-0.8); Eosinophils % 3.4 %; Hematocrit 47.4 % (42.0-52.0); Hemoglobin 16.4 g/dL (11.7-16.6); Lymphocytes # 3.8 10^3/uL (0.8-4.8); Lymphocytes % 29.6 %; Mean Corpuscular HGB Conc 34.6 g/dL (30.0-36.0); Mean Corpuscular Volume 92.4 fl (80-94); Mean Platelet Volume 10.1 fL (7.4-10.4); Monocytes # 0.9 10^3/uL (0.2-0.9); Monocytes % 6.9 %; Neutrophils % 59.3 %; Nucleated Red Blood Cells % 0 %; Platelet Count 317 10^3/cmm (130-400); Red Blood Count 5.13 10^6/uL (4.1-5.3); Red Cell Distribution Width 13.6 % (12.1-15.1); White Blood Count 12.7 10^3/uL (4.0-10.0)
[2022-12-09] MEDS: labetalol 200 mg Tablet 100 MG PO (00:49)
[2022-12-09 00:57] VITALS: BP 123/85; PULSE 87; RESP 16; O2SAT 96
[2022-12-09 01:13] LABS: Troponin T (5th) Once 7 ng/L (0-15)
[2022-12-09 01:21] LABS: Alanine Aminotransferase 41 U/L (0-41); Albumin Level 5.1 g/dL (3.5-5.2); Alkaline Phosphatase 138 U/L (40-130); Anion Gap 21.8 (5-19); Aspartate Amino Transferase 40 U/L (0-40); Blood Urea Nitrogen 9 mg/dL (6-20); Carbon Dioxide 22 mmol/L (22-29); Chloride 102 mmol/L (98-107); Globulin 3.1 g/dL (1.3-4.6); Glomerular Filtration Rate 126.2 mL/min (90-130); Glucose 93 mg/dL (65-115); NT Pro B Type Natriuretic Pept 36 pg/mL (0-125); Osmolality Calculated 292 mOsm/kg (285-295); Potassium 3.8 mmol/L (3.5-5.1); Sodium 142 mmol/L (136-145); Total Bilirubin 0.2 mg/dL (0.15-1.2); Total Protein 8.2 g/dL (6.6-8.7)
[2022-12-09 01:27] VITALS: BP 123/85; PULSE 88; RESP 17; O2SAT 95
[2022-12-09 01:38] VITALS: BP 123/81; PULSE 90; RESP 14; O2SAT 94
== END 2022-12-09 01:40 | disposition home or self-care (01) ==
PROVIDERS: Emergency Provider Nurse Practitioner Family; PCP Family Medicine
DX: I16.0 Hypertensive urgency (principal); F17.210 Nicotine dependence, cigarettes, uncomplicated
CPT/HCPCS: 71045; 80053; 83880; 84484; 85025; 93005; 99285

== ENCOUNTER 2022-12-10 15:45 | Emergency (ER) | payer OTHER, SELFPAY ==
[2022-12-10 15:47] VITALS: BP 146/99; PULSE 89; RESP 19; TEMP 36.4; O2SAT 96; BMI 29.0
--- NOTE | 2022-12-10 16:17 | CTR_ITS ---
PROCEDURE INFORMATION: Exam: CT Abdomen And Pelvis Without Contrast Exam date and time: 12/10/2022 4:31 PM Age: 37 years old Clinical indication: Abdominal pain; Flank; Left; Prior surgery; Surgery date: 6+ months; Surgery type: Appy; Additional info: L flank pain TECHNIQUE: Imaging protocol: Computed tomography of the abdomen and pelvis without contrast. Radiation optimization: All CT scans at this facility use at least one of these dose optimization techniques: automated exposure control; mA and/or kV adjustment per patient size (includes targeted exams where dose is matched to clinical indication); or iterative reconstruction. REPORTING DATA: Count of CT and Cardiac NM exams in prior 12 months: This patient has received [address] and 0 known cardiac nuclear medicine studies in the 12 months prior to the current study. COMPARISON: CT abdomen pelvis w con* [id number] 08/11/2022 7:47 PM RADIATION DOSE METRICS: Total DLP (mGy-cm): 401.97 FINDINGS: Liver: Normal. No mass. Gallbladder and bile ducts: Normal. No calcified stones. No ductal dilation. Pancreas: Normal. No ductal dilation. Spleen: Normal. No splenomegaly. Adrenal glands: Normal. No mass. Kidneys and ureters: Normal. No hydronephrosis. Stomach and bowel: Unremarkable. No obstruction. No mucosal thickening. Appendix: The appendix is not visualized. No secondary signs of appendicitis. Intraperitoneal space: Unremarkable. No free air. No significant fluid collection. Vasculature: Unremarkable. No abdominal aortic aneurysm. Lymph nodes: Unremarkable. No enlarged lymph nodes. Urinary bladder: Unremarkable as visualized. Reproductive: Unremarkable as visualized. Bones/joints: Unremarkable. No acute fracture. Soft tissues: Small fat containing umbilical hernia. CT/CT kidney stone [id number] IMPRESSION: No acute findings.
--- NOTE | 2022-12-10 16:18 | W.ED.BACK ---
Documented by User: AVA Hines 12/10/22 16:38 HPI - Back Pain/Injury General: Chief Complaint: Abdominal Pain Stated Complaint: abd/left side pain Time Seen by Provider: 12/10/22 16:08 Source: patient Mode of arrival: ambulatory Limitations: no limitations History of Present Illness: Patient is a 37-year-old male who presents to ED today with a complaint of left flank pain. He states he first noticed pain when he was urinating and states the pain quickly became severe. No known injury or trauma. He denies hematuria, urinary urgency, frequency, or hesitancy. No previous history of kidney or ureter stones. He is not having any chest pain, shortness of breath, difficulty breathing. Denies abdominal pain. States pain is making him feel nauseous and sweaty. MD elicited complaint: back pain Onset (ago): hour(s) Timing: constant Severity: severe Similar Symptoms Previously: No Quality: sharp and stabbing Location: left flank Radiation: none Exacerbating factors: none Relieving factors: none Context: other (noticed while urinating ) Associated symptoms: Deny abdominal pain, chills, dysuria, fatigue, fever(s), hematuria, nausea, syncope, urinary urgency or vomiting Work related injury: No Review of Systems Const: Denies: fever(s), chills, body aches, fatigue or malaise Card: Denies: chest pain, palpitations, irregular heart rhythm, lightheadedness, syncope or dyspnea on exertion Resp: Denies: dyspnea, productive cough or pain on inspiration GI: Denies: abdominal pain, nausea, vomiting, heartburn or diarrhea : Reports: flank pain; Denies: difficulty urinating, dysuria, urinary frequency, urinary urgency, urinary hesitancy or hematuria Musc: Denies: neck pain, back pain, extremity pain, extremity swelling or joint pain Skin/Breast: Denies: rash Neuro: Denies: headache(s), numbness in extremities, weakness in extremities, sensory changes or dizziness COUNT INCLUDES THE [facility] ED PFSH: Medical History GERD without esophagitis Social History Smoking and tobacco status: current every day smoker Physical Exam Const: COMMON NORMALS: average body habitus, patient oriented x3, no limitations, alert and well nourished GENERAL APPEARANCE: cooperative and in distress (appears uncomfortable secondary to pain) ORIENTATION/CONSCIOUSNESS: Yes awake, Yes oriented to person, Yes oriented to place and Yes oriented to time HENMT: COMMON NORMALS: normocephalic and atraumatic HEAD & SCALP: normal to inspection, normocephalic and atraumatic Resp: COMMON NORMALS: normal respiratory effort and clear to auscultation bilaterally AUSCULTATION: clear to auscultation bilaterally Cardio: COMMON NORMALS: regular rate and regular rhythm RATE: regular rate RHYTHM: regular rhythm GI: COMMON NORMALS: Normal to inspection, nondistended, normoactive bowel sounds present, Soft to palpation, non-tender, No hepatosplenomegaly present and no masses PALPATION: Yes Soft to palpation and Yes No hepatosplenomegaly present : BLADDER/KIDNEY EXAM: Yes CVA tenderness (just below L CVA) on the left Back/Pelvis: COMMON NORMALS: thoracic and lumbar spine normal to inspection, no thoracic nor lumbar tenderness and thoraco-lumbar ROM normal GENERAL BACK: Yes CVA tenderness (just below L CVA) Extremity: COMMON NORMALS: normal to inspection, capillary refill normal and no clubbing, cyanosis or edema GENERAL: Yes normal exam except as noted Neuro: CLARICE COMA SCALE: document GCS findings Clarcie coma scale eye opening: Spontaneous Harriet coma scale verbal response: Orientated Clarice coma scale motor response: Obey commands Clarice coma scale total score: 15 COMMON NORMALS: patient oriented x3, moves all extremities, no focal motor deficits, no sensory deficits noted and gait normal SENSORIUM/ORIENTATION: Yes alert, Yes oriented to person, Yes oriented to place and Yes oriented to time Skin: COMMON NORMALS: no rashes or lesions noted GENERAL SKIN EXAM: no rashes or lesions noted Course Vital Signs: Vital signs: Vital Signs Temperature 97.5 F L 12/10/22 15:47 Pulse Rate 89 12/10/22 15:47 Respiratory Rate 19 H 12/10/22 15:47 Blood Pressure 146/99 12/10/22 15:47 Pulse Oximetry 96 12/10/22 15:47 Oxygen Delivery Me thod Room Air 12/10/22 15:47 MDM - Back Pain/Injury Labs 12/10/22 16:46 12/10/22 16:46 Radiology Impressions Abdomen/Pelvis CT 12/10/22 16:17 IMPRESSION: No acute findings. Laboratory Results WBC 10.8 10^3/uL (4.0-10.0) H 12/10/22 16:46 RBC 4.97 10^6/uL (4.1-5.3) 12/10/22 16:46 Hgb 16.3 g/dL (11.7-16.6) 12/10/22 16:46 Hct 47.1 % (42.0-52.0) 12/10/22 16:46 MCV 94.8 fl (80-94) H 12/10/22 16:46 MCH 32.8 pg (28.0-34.0) 12/10/22 16:46 MCHC 34.6 g/dL (30.0-36.0) 12/10/22 16:46 RDW 13.9 % (12.1-15.1) 12/10/22 16:46 Plt Count 300 10^3/cmm (130-400) 12/10/22 16:46 MPV 10.3 fL (7.4-10.4) 12/10/22 16:46 Neut % (Auto) 69.2 % 12/10/22 16:46 Lymph % (Auto) 20.7 % 12/10/22 16:46 [place] % (Auto) 5.8 % 12/10/22 16:46 Eos % (Auto) 3.6 % 12/10/22 16:46 Baso % (Auto) 0.3 % 12/10/22 16:46 Neut # (Auto) 7.48 10^3/uL (1.8-7.7) 12/10/22 16:46 Lymph # (Auto) 2.2 10^3/uL (0.8-4.8) 12/10/22 16:46 [place] # (Auto) 0.6 10^3/uL (0.2-0.9) 12/10/22 16:46 Eos # (Auto) 0.4 10^3/uL (0.0-0.8) 12/10/22 16:46 Baso # (Auto) 0.0 10^3/uL (0.0-0.1) 12/10/22 16:46 Nucleated RBC % (auto) 0 % 12/10/22 16:46 Nucleated RBCs # 0.0 /100WBC 12/10/22 16:46 Sodium 138 mmol/L (136-145) 12/10/22 16:46 Potassium 3.9 mmol/L (3.5-5.1) 12/10/22 16:46 Chloride 101 mmol/L (98-107) 12/10/22 16:46 Carbon Dioxide 22 mmol/L (22-29) 12/10/22 16:46 Anion Gap 18.9 (5-19) 12/10/22 16:46 BUN 13 mg/dL (6-20) 12/10/22 16:46 Creatinine 0.8 mg/dL (0.7-1.2) 12/10/22 16:46 GFR Calculation 108.2 mL/min (90-130) 12/10/22 16:46 Glucose 101 mg/dL (65-115) 12/10/22 16:46 Calculated Osmolality 286 mOsm/kg (285-295) 12/10/22 16:46 Calcium 9.8 mg/dL (8.5-10.5) 12/10/22 16:46 Total Bilirubin 0.4 mg/dL (0.15-1.2) 12/10/22 16:46 AST 29 U/L (0-40) 12/10/22 16:46 ALT 35 U/L (0-41) 12/10/22 16:46 Alkaline Phosphatase 119 U/L (40-130) 12/10/22 16:46 Total Protein 7.5 g/dL (6.6-8.7) 12/10/22 16:46 Albumin 4.8 g/dL (3.5-5.2) 12/10/22 16:46 Globulin 2.7 g/dL (1.3-4.6) 12/10/22 16:46 Urine Color Yellow (Yellow) 12/10/22 17:57 Urine Appearance Clear (CLEAR) 12/10/22 17:57 Urine pH 6 (5-7) 12/10/22 17:57 Ur Specific [place] 1.020 (1.005-1.030) 12/10/22 17:57 Urine Protein Neg (Negative) 12/10/22 17:57 Urine Glucose (UA) Norm (Normal) 12/10/22 17:57 Urine Ketones Negative (Negative) 12/10/22 17:57 Urine Blood Neg (Negative) 12/10/22 17:57 Urine Nitrate Negative (Negative) 12/10/22 17:57 Urine Bilirubin Neg (Negative) 12/10/22 17:57 Urine Urobilinogen Norm mg/dL (Negative) 12/10/22 17:57 Ur Leukocyte Esterase Negative (Negative) 12/10/22 17:57 Discharge Plan Discharge Patient Disposition: Home Clinical Impression: Back pain Qualifiers: Back pain location: low back pain Chronicity: acute Back pain laterality: left Sciatica presence: without sciatica Qualified Code(s): M54.50 - Low back pain, unspecified Condition: Stable Prescriptions: New hydrocodone-acetaminophen 5-325 mg tablet 1 tab PO Q8H PRN (Reason: pain (scale score 7-10)) Qty: 9 0RF No Action mesalamine [Lialda] 1.2 gram tablet,delayed release (DR/EC) 4.8 g PO DAILY 30 Days Qty: 240 2RF diclofenac sodium 75 mg tablet,delayed release (DR/EC) See Rx Instructions .ROUTE .COMPLEX Qty: 60 2RF Dose Instruction: TAKE 1 TABLET BY MOUTH TWICE DAILY NEEDED FOR PAIN *take with food* Rx Instructions: TAKE 1 TABLET BY MOUTH TWICE DAILY NEEDED FOR PAIN *take with food* omeprazole 20 mg capsule,delayed release(DR/EC) 20 mg PO DAILY 60 Days Qty: 60 3RF Tylenol Extra Strength 500 mg Tablet 1,000 mg PO PRN labetalol 100 mg tablet 100 mg PO BID Qty: 60 0RF Discharge Orders: Discharge ED (Routine); Ordered 12/10/22 Ordered By: Rd Jerez Referrals: Enio Harris MD [Primary Care Provider] - Discharge Diet: Usual diet Discharge Activity: Increase activity as tolerated Patient Instructions: Back Pain (ED), Opioid Safety, Pain Management Activity Restrictions/Additional Instructions: Activity as tolerated. Continue with routine medications as directed. Drink plenty of water with medication. Use hydrocodone for severe pain. Use acetaminophen along with your diclofenac for control of pain. Follow-up with primary care for further instruction. Return to ED for new concerns. Sign Out Sign Out Data: Patient Sign Out occurred on 12/10/22 at 17:07. Patient's care was discussed, and care was transferred from to Rd Jerez. Coding Level of Care Code ED Side Door Worker for Chg Fwd Documented by User: THUY Cristobal 12/10/22 18:54 HPI - Back Pain/Injury General: Chief Complaint: Abdominal Pain Stated Complaint: abd/left side pain Time Seen by Provider: 12/10/22 16:08 PFSH ED PFSH: Medical History GERD without esophagitis Social History Smoking and tobacco status: current every day smoker Physical Exam Neuro: CLARICE COMA SCALE: document GCS findings Clarice coma scale total score: 15 Course Vital Signs: Vital signs: Vital Signs Temperature 97.5 F L 12/10/22 15:47 Pulse Rate 89 12/10/22 15:47 Respiratory Rate 19 H 12/10/22 15:47 Blood Pressure 146/99 12/10/22 15:47 Pulse Oximetry 96 12/10/22 15:47 Oxygen Delivery Me thod Room Air 12/10/22 15:47 MDM - Back Pain/Injury Medical Decision Making Patient comes in today with complaints of left low back pain radiating to the abdomen. On exam patient has paraspinous muscle tenderness in the left low back. Abdomen also reports some tenderness. Normal bowel sounds. Vital signs are normal. Differential diagnosis includes lumbar strain, renal calculi, diverticulitis, malingering. CT of the abdomen pelvis was unremarkable. Urinalysis, CBC, CMP were normal. Reviewed exam with patient with recommendations for treatment for low back pain. Suspect lumbar strain. Discussed need for follow-up or return to the ER. Patient reported understanding. Labs 12/10/22 16:46 12/10/22 16:46 Radiology Impressions Abdomen/Pelvis CT 12/10/22 16:17 IMPRESSION: No acute findings. Laboratory Results WBC 10.8 10^3/uL (4.0-10.0) H 12/10/22 16:46 RBC 4.97 10^6/uL (4.1-5.3) 12/10/22 16:46 Hgb 16.3 g/dL (11.7-16.6) 12/10/22 16:46 Hct 47.1 % (42.0-52.0) 12/10/22 16:46 MCV 94.8 fl (80-94) H 12/10/22 16:46 MCH 32.8 pg (28.0-34.0) 12/10/22 16:46 MCHC 34.6 g/dL (30.0-36.0) 12/10/22 16:46 RDW 13.9 % (12.1-15.1) 12/10/22 16:46 Plt Count 300 10^3/cmm (130-400) 12/10/22 16:46 MPV 10.3 fL (7.4-10.4) 12/10/22 16:46 Neut % (Auto) 69.2 % 12/10/22 16:46 Lymph % (Auto) 20.7 % 12/10/22 16:46 [place] % (Auto) 5.8 % 12/10/22 16:46 Eos % (Auto) 3.6 % 12/10/22 16:46 Baso % (Auto) 0.3 % 12/10/22 16:46 Neut # (Auto) 7.48 10^3/uL (1.8-7.7) 12/10/22 16:46 Lymph # (Auto) 2.2 10^3/uL (0.8-4.8) 12/10/22 16:46 [place] # (Auto) 0.6 10^3/uL (0.2-0.9) 12/10/22 16:46 Eos # (Auto) 0.4 10^3/uL (0.0-0.8) 12/10/22 16:46 Baso # (Auto) 0.0 10^3/uL (0.0-0.1) 12/10/22 16:46 Nucleated RBC % (auto) 0 % 12/10/22 16:46 Nucleated RBCs # 0.0 /100WBC 12/10/22 16:46 Sodium 138 mmol/L (136-145) 12/10/22 16:46 Potassium 3.9 mmol/L (3.5-5.1) 12/10/22 16:46 Chloride 101 mmol/L (98-107) 12/10/22 16:46 Carbon Dioxide 22 mmol/L (22-29) 12/10/22 16:46 Anion Gap 18.9 (5-19) 12/10/22 16:46 BUN 13 mg/dL (6-20) 12/10/22 16:46 Creatinine 0.8 mg/dL (0.7-1.2) 12/10/22 16:46 GFR Calculation 108.2 mL/min (90-130) 12/10/22 16:46 Glucose 101 mg/dL (65-115) 12/10/22 16:46 Calculated Osmolality 286 mOsm/kg (285-295) 12/10/22 16:46 Calcium 9.8 mg/dL (8.5-10.5) 12/10/22 16:46 Total Bilirubin 0.4 mg/dL (0.15-1.2) 12/10/22 16:46 AST 29 U/L (0-40) 12/10/22 16:46 ALT 35 U/L (0-41) 12/10/22 16:46 Alkaline Phosphatase 119 U/L (40-130) 12/10/22 16:46 Total Protein 7.5 g/dL (6.6-8.7) 12/10/22 16:46 Albumin 4.8 g/dL (3.5-5.2) 12/10/22 16:46 Globulin 2.7 g/dL (1.3-4.6) 12/10/22 16:46 Urine Color Yellow (Yellow) 12/10/22 17:57 Urine Appearance Clear (CLEAR) 12/10/22 17:57 Urine pH 6 (5-7) 12/10/22 17:57 Ur Specific [place] 1.020 (1.005-1.030) 12/10/22 17:57 Urine Protein Neg (Negative) 12/10/22 17:57 Urine Glucose (UA) Norm (Normal) 12/10/22 17:57 Urine Ketones Negative (Negative) 12/10/22 17:57 Urine Blood Neg (Negative) 12/10/22 17:57 Urine Nitrate Negative (Negative) 12/10/22 17:57 Urine Bilirubin Neg (Negative) 12/10/22 17:57 Urine Urobilinogen Norm mg/dL (Negative) 12/10/22 17:57 Ur Leukocyte Esterase Negative (Negative) 12/10/22 17:57 Discharge Plan Discharge Patient Disposition: Home Clinical Impression: Back pain Qualifiers: Back pain location: low back pain Chronicity: acute Back pain laterality: left Sciatica presence: without sciatica Qualified Code(s): M54.50 - Low back pain, unspecified Condition: Stable Prescriptions: New hydrocodone-acetaminophen 5-325 mg tablet 1 tab PO Q8H PRN (Reason: pain (scale score 7-10)) Qty: 9 0RF No Action mesalamine [Lialda] 1.2 gram tablet,delayed release (DR/EC) 4.8 g PO DAILY 30 Days Qty: 240 2RF diclofenac sodium 75 mg tablet,delayed release (DR/EC) See Rx Instructions .ROUTE .COMPLEX Qty: 60 2RF Dose Instruction: TAKE 1 TABLET BY MOUTH TWICE DAILY NEEDED FOR PAIN *take with food* Rx Instructions: TAKE 1 TABLET BY MOUTH TWICE DAILY NEEDED FOR PAIN *take with food* omeprazole 20 mg capsule,delayed release(DR/EC) 20 mg PO DAILY 60 Days Qty: 60 3RF Tylenol Extra Strength 500 mg Tablet 1,000 mg PO PRN labetalol 100 mg tablet 100 mg PO BID Qty: 60 0RF Discharge Orders: Discharge ED (Routine); Ordered 12/10/22 Ordered By: Rd Jerez Referrals: Enio Harris MD [Primary Care Provider] - Discharge Diet: Usual diet Discharge Activity: Increase activity as tolerated Patient Instructions: Back Pain (ED), Opioid Safety, Pain Management Activity Restrictions/Additional Instructions: Activity as tolerated. Continue with routine medications as directed. Drink plenty of water with medication. Use hydrocodone for severe pain. Use acetaminophen along with your diclofenac for control of pain. Follow-up with primary care for further instruction. Return to ED for new concerns. Sign Out Sign Out Data: Patient Sign Out occurred on 12/10/22 at 17:07. Patient's care was discussed, and care was transferred from to Rd Jerez. Coding Level of Care Code ED Side Door Worker for Tc Delgado
[2022-12-10] MEDS: ketorolac 60 mg/2 mL INJ 30 MG IVP (16:59)
[2022-12-10] MEDS: ondansetron 2 mg/ML SDV 2 mL 4 MG IVP (16:59)
[2022-12-10] MEDS: sodium chloride 0.9% 1,000 ML 999 ML IV (16:59)
[2022-12-10 17:06] LABS: Basophils % 0.3 %; Eosinophils # 0.4 10^3/uL (0.0-0.8); Eosinophils % 3.6 %; Hematocrit 47.1 % (42.0-52.0); Hemoglobin 16.3 g/dL (11.7-16.6); Lymphocytes # 2.2 10^3/uL (0.8-4.8); Lymphocytes % 20.7 %; Mean Corpuscular HGB Conc 34.6 g/dL (30.0-36.0); Mean Corpuscular Hemoglobin 32.8 pg (28.0-34.0); Mean Corpuscular Volume 94.8 fl (80-94); Mean Platelet Volume 10.3 fL (7.4-10.4); Monocytes # 0.6 10^3/uL (0.2-0.9); Monocytes % 5.8 %; Neutrophils # 7.48 10^3/uL (1.8-7.7); Neutrophils % 69.2 %; Nucleated Red Blood Cells % 0 %; Platelet Count 300 10^3/cmm (130-400); Red Blood Count 4.97 10^6/uL (4.1-5.3); Red Cell Distribution Width 13.9 % (12.1-15.1); White Blood Count 10.8 10^3/uL (4.0-10.0)
[2022-12-10 17:48] LABS: Alanine Aminotransferase 35 U/L (0-41); Albumin Level 4.8 g/dL (3.5-5.2); Alkaline Phosphatase 119 U/L (40-130); Anion Gap 18.9 (5-19); Aspartate Amino Transferase 29 U/L (0-40); Blood Urea Nitrogen 13 mg/dL (6-20); Calcium 9.8 mg/dL (8.5-10.5); Carbon Dioxide 22 mmol/L (22-29); Chloride 101 mmol/L (98-107); Globulin 2.7 g/dL (1.3-4.6); Glomerular Filtration Rate 108.2 mL/min (90-130); Glucose 101 mg/dL (65-115); Osmolality Calculated 286 mOsm/kg (285-295); Potassium 3.9 mmol/L (3.5-5.1); Sodium 138 mmol/L (136-145); Total Bilirubin 0.4 mg/dL (0.15-1.2); Total Protein 7.5 g/dL (6.6-8.7)
[2022-12-10 18:03] LABS: Add Urine Microscopic? NO; Charge for UA Resulting for Rev
[2022-12-10 18:15] LABS: Bilirubin Urine Neg (Negative); Blood Urine Neg (Negative); Glucose Urine UA Norm (Normal); Ketones Urine Negative (Negative); Leukocyte Esterase Urine Negative (Negative); Nitrate Urine Negative (Negative); Protein Urine Neg (Negative); Urine Appearance Clear (CLEAR); Urine Color Yellow (Yellow); Urobilinogen Urine Norm (Negative); pH Urine 6 (5-7)
== END 2022-12-10 18:35 | disposition home or self-care (01) ==
PROVIDERS: Physician Assistant; Emergency Provider Nurse Practitioner Family; PCP Family Medicine
DX: M54.50 Low back pain, unspecified (principal); F17.210 Nicotine dependence, cigarettes, uncomplicated
CPT/HCPCS: 74176; 80053; 81003; 85025; 96361; 96374; 96375; 99285; J1885; J2405; J7030

== ENCOUNTER 2023-02-08 10:28 | Emergency (ER) | payer OTHER, SELFPAY ==
[2023-02-08 10:33] VITALS: BP 160/105; PULSE 93; RESP 18; TEMP 36.6; O2SAT 97; BMI 29.0
--- NOTE | 2023-02-08 10:33 | XRR_ITS ---
PROCEDURE INFORMATION: Exam: XR Chest Exam date and time: 02/08/2023 11:11 AM Age: 37 years old Clinical indication: Pain; Chest pressure; Additional info: Cp TECHNIQUE: Imaging protocol: Radiologic exam of the chest. Views: 1 view. COMPARISON: CR XR chest 1V portable [id number] 12/09/2022 12:44 AM FINDINGS: Lungs: Hyperinflation and mild interstitial prominence, without acute airspace disease. Pleural spaces: No pleural effusion. Heart/Mediastinum: Normal configuration of the heart. Bones/joints: Unremarkable. When correlating with the previous study, no significant interval changes are present. XR/XR chest 1V portable [id number] IMPRESSION: No acute airspace or pleural disease.
--- NOTE | 2023-02-08 10:45 | ECG_ITS ---
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 Measurements Intervals Stella Rate: 91 P: 16 [place]: 169 QRS: 17 QRSD: 114 T: 32 QT: 344 QTc: 424 Interpretive Statements SINUS RHYTHM MODERATE INTRAVENTRICULAR CONDUCTION DELAY [110+ ms QRS DURATION] Compared to ECG 12/09/2022 00:37:39 Intraventricular conduction delay now present Myocardial infarct finding no longer present Electronically Signed On 02-08-2023 14:48:08 CDT by Antonietta Rodas M.D. [id number]
--- NOTE | 2023-02-08 11:03 | W.ED.CHESTPA ---
HPI - Chest Pain General: Chief Complaint: Chest Pain Stated Complaint: chest pain Time Seen by Provider: 02/08/23 10:33 Source: patient Mode of arrival: ambulatory Limitations: no limitations History of Present Illness: 37-year-old male states he does have a history of reflux he states this morning he started having an epigastric and chest pain. He states he folic he had to burp but did not. He denies any fevers denies any shortness of breath denies any worsening proving factors states he takes Prilosec he had no relief. Associated symptoms: Reports abdominal pain; Deny dyspnea, fever(s), nausea or vomiting Review of Systems Const: Denies: fever(s), chills, body aches or change in appetite Eyes: Denies: eye discomfort ENMT: Denies: throat pain or dental pain Card: Reports: chest pain Resp: Denies: dyspnea GI: Reports: abdominal pain; Denies: nausea, vomiting or diarrhea Musc: Denies: neck pain or back pain Skin/Breast: Denies: rash Neuro: Denies: headache(s) PFS ED PFSH: Medical History GERD without esophagitis Social History Smoking and tobacco status: current every day smoker Physical Exam Const: COMMON NORMALS: no acute distress, patient oriented x3 and healthy appearing HENMT: COMMON NORMALS: normocephalic and atraumatic HEAD & SCALP: normocephalic and atraumatic Eye: COMMON NORMALS: conjunctivae normal CONJUNCTIVA: Yes conjunctivae normal Neck/C-Spine: COMMON NORMALS: full ROM and supple Chest: COMMONS NORMALS: normal inspection of the chest and normal palpation of entire chest wall Resp: COMMON NORMALS: normal respiratory effort, No retractions, No use of accessory muscles and clear to auscultation bilaterally AUSCULTATION: clear to auscultation bilaterally Cardio: COMMON NORMALS: regular rate, regular rhythm and No murmurs present (Cardio) RATE: regular rate RHYTHM: regular rhythm GI: COMMON NORMALS: Normal to inspection, nondistended, normoactive bowel sounds present, Soft to palpation, non-tender and no masses PALPATION: Yes Soft to palpation Extremity: COMMON NORMALS: normal to inspection and full ROM Neuro: COMMON NORMALS: patient oriented x3, moves all extremities and no focal motor deficits Psych: COMMON NORMALS: mental status grossly normal, Normal thought process present and cooperative THOUGHT PROCESS: Normal thought process present Skin: COMMON NORMALS: no rashes or lesions noted and no wounds GENERAL SKIN EXAM: no rashes or lesions noted Course Vital Signs: Vital signs: Vital Signs Temperature 97.8 F 02/08/23 10:33 Pulse Rate 93 02/08/23 12:14 Respiratory Rate 10 L 02/08/23 11:28 Blood Pressure 140/101 02/08/23 12:14 Pulse Oximetry 94 02/08/23 12:14 Oxygen Delivery Me thod Room Air 02/08/23 10:33 MDM - Chest Pain Medical Decision Making Patient presents here with epigastric pain likely reflux he feels improved here after GI cocktail his troponin EKG is normal no signs of cardiac cause for his pain we will start him on Protonix he is to follow-up with PCP and return if worsening. Medical Records I reviewed the patient's medical records. Lab Data I reviewed the patient's lab results. 02/08/23 11:18 02/08/23 11:18 Laboratory Results WBC 10.0 10^3/uL (4.0-10.0) 02/08/23 11:18 RBC 5.17 10^6/uL (4.1-5.3) 02/08/23 11:18 Hgb 16.9 g/dL (11.7-16.6) H 02/08/23 11:18 Hct 49.5 % (42.0-52.0) 02/08/23 11:18 MCV 95.7 fl (80-94) H 02/08/23 11:18 MCH 32.7 pg (28.0-34.0) 02/08/23 11:18 MCHC 34.1 g/dL (30.0-36.0) 02/08/23 11:18 RDW 13.6 % (12.1-15.1) 02/08/23 11:18 Plt Count 277 10^3/cmm (130-400) 02/08/23 11:18 MPV 10.3 fL (7.4-10.4) 02/08/23 11:18 Neut % (Auto) 66.9 % 02/08/23 11:18 Lymph % (Auto) 22.5 % 02/08/23 11:18 [place] % (Auto) 5.9 % 02/08/23 11:18 Eos % (Auto) 4.0 % 02/08/23 11:18 Baso % (Auto) 0.3 % 02/08/23 11:18 Neut # (Auto) 6.68 10^3/uL (1.8-7.7) 02/08/23 11:18 Lymph # (Auto) 2.3 10^3/uL (0.8-4.8) 02/08/23 11:18 [place] # (Auto) 0.6 10^3/uL (0.2-0.9) 02/08/23 11:18 Eos # (Auto) 0.4 10^3/uL (0.0-0.8) 02/08/23 11:18 Baso # (Auto) 0.0 10^3/uL (0.0-0.1) 02/08/23 11:18 Nucleated RBC % (auto) 0 % 02/08/23 11:18 Nucleated RBCs # 0.0 /100WBC 02/08/23 11:18 Sodium 138 mmol/L (136-145) 02/08/23 11:18 Potassium 4.1 mmol/L (3.5-5.1) 02/08/23 11:18 Chloride 102 mmol/L (98-107) 02/08/23 11:18 Carbon Dioxide 24 mmol/L (22-29) 02/08/23 11:18 Anion Gap 16.1 (5-19) 02/08/23 11:18 BUN 16 mg/dL (6-20) 02/08/23 11:18 Creatinine 0.9 mg/dL (0.7-1.2) 02/08/23 11:18 GFR Calculation 94.4 mL/min (90-130) 02/08/23 11:18 Glucose 101 mg/dL (65-115) 02/08/23 11:18 Calculated Osmolality 287 mOsm/kg (285-295) 02/08/23 11:18 Calcium 9.5 mg/dL (8.5-10.5) 02/08/23 11:18 Total Bilirubin 0.4 mg/dL (0.15-1.2) 02/08/23 11:18 AST 32 U/L (0-40) 02/08/23 11:18 ALT 35 U/L (0-41) 02/08/23 11:18 Alkaline Phosphatase 132 U/L (40-130) H 02/08/23 11:18 Troponin T Baseline 10 ng/L (0-15) 02/08/23 11:18 Total Protein 7.4 g/dL (6.6-8.7) 02/08/23 11:18 Albumin 4.9 g/dL (3.5-5.2) 02/08/23 11:18 Globulin 2.5 g/dL (1.3-4.6) 02/08/23 11:18 Lipase 63 U/L (13-60) H 02/08/23 11:18 EKG Data EKG 1: I personally reviewed and interpreted this EKG as follows: EKG interpretation date: 02/08/23 EKG interpretation time: 10:45 Interpretation: nsr hr [address] or t wave abnormalities qrs 114 qtc 393 Discharge Plan Discharge Patient Disposition: Home Clinical Impression: Chest pain, Abdominal pain Condition: Stable Prescriptions: New Protonix 40 mg tablet,delayed release (DR/EC) 40 mg PO DAILY Qty: 60 0RF No Action acetaminophen [Tylenol Extra Strength] 500 mg Tablet 1,000 mg PO Q6H PRN (Reason: Pain) hydrocodone-acetaminophen 5-325 mg tablet 1 tab PO Q8H PRN (Reason: pain (scale score 7-10)) Qty: 9 0RF cyclobenzaprine 10 mg tablet 10 mg PO TID PRN (Reason: Muscle Spasm) omeprazole 20 mg capsule,delayed release(DR/EC) 20 mg PO BEDTIME Lialda 1.2 gram tablet,delayed release (DR/EC) 4.8 g PO BEDTIME Discharge Orders: Discharge ED (Routine); Ordered 02/08/23 Ordered By: Bere Smith Referrals: Enio Harris MD [Primary Care Provider] - 1-3 days Discharge Diet: Advance as tolerated Discharge Activity: Resume usual activity Patient Instructions: Abdominal Pain (ED) Coding Level of Care Code ED Interventional Cardiologist for Chg Sandy
[2023-02-08] MEDS: lidocaine 2% viscous 15 ML, aluminum-mag hydrox-simethicon 30 ML, sucralfate oral liq 1 GM PO (11:09)
[2023-02-08 11:24] LABS: Basophils % 0.3 %; Eosinophils # 0.4 10^3/uL (0.0-0.8); Hematocrit 49.5 % (42.0-52.0); Hemoglobin 16.9 g/dL (11.7-16.6); Lymphocytes # 2.3 10^3/uL (0.8-4.8); Lymphocytes % 22.5 %; Mean Corpuscular HGB Conc 34.1 g/dL (30.0-36.0); Mean Corpuscular Hemoglobin 32.7 pg (28.0-34.0); Mean Corpuscular Volume 95.7 fl (80-94); Mean Platelet Volume 10.3 fL (7.4-10.4); Monocytes # 0.6 10^3/uL (0.2-0.9); Monocytes % 5.9 %; Neutrophils # 6.68 10^3/uL (1.8-7.7); Neutrophils % 66.9 %; Nucleated Red Blood Cells % 0 %; Platelet Count 277 10^3/cmm (130-400); Red Blood Count 5.17 10^6/uL (4.1-5.3); Red Cell Distribution Width 13.6 % (12.1-15.1)
[2023-02-08 11:28] VITALS: BP 156/97; PULSE 89; RESP 10; O2SAT 94
--- NOTE | 2023-02-08 11:42 | PC.PHAR ---
pt states he takes care of his own medications-pt states the labetalol 100mg bid filled 12/09/22 30d/s and lisinopril 20mg daily filled 12/15/22 30d/s was dced pt states not taken for a month-
[2023-02-08 11:49] LABS: Troponin(5th) Baseline 10 ng/L (0-15)
[2023-02-08 11:52] LABS: Alanine Aminotransferase 35 U/L (0-41); Albumin Level 4.9 g/dL (3.5-5.2); Alkaline Phosphatase 132 U/L (40-130); Anion Gap 16.1 (5-19); Aspartate Amino Transferase 32 U/L (0-40); Blood Urea Nitrogen 16 mg/dL (6-20); Calcium 9.5 mg/dL (8.5-10.5); Carbon Dioxide 24 mmol/L (22-29); Chloride 102 mmol/L (98-107); Globulin 2.5 g/dL (1.3-4.6); Glomerular Filtration Rate 94.4 mL/min (90-130); Glucose 101 mg/dL (65-115); Lipase 63 U/L (13-60); Osmolality Calculated 287 mOsm/kg (285-295); Potassium 4.1 mmol/L (3.5-5.1); Sodium 138 mmol/L (136-145); Total Bilirubin 0.4 mg/dL (0.15-1.2); Total Protein 7.4 g/dL (6.6-8.7)
[2023-02-08 12:14] VITALS: BP 140/101; PULSE 93; O2SAT 94
== END 2023-02-08 12:15 | disposition home or self-care (01) ==
PROVIDERS: Emergency Provider Emergency Medicine; PCP Family Medicine
DX: R07.9 Chest pain, unspecified (principal); R10.13 Epigastric pain; F17.210 Nicotine dependence, cigarettes, uncomplicated
CPT/HCPCS: 71045; 80053; 83690; 84484; 85025; 93005; 99285

== ENCOUNTER 2023-06-23 13:32 | Outpatient (CLI) | payer OTHER, SELFPAY ==
--- NOTE | 2023-06-23 13:40 | XR_ITS ---
WS: [id number] Exam: XR cervical spine 3V* [id number] Date/Time of Exam: 06/23/2023 1:49 PM Reason For Exam: radicular pain Comparison 02/21/2015. No fracture or dislocation. Straightening and reversal of the normal cervical C curve. Degenerative t hinning of the C6-7 disc and spondylosis at C6 and C7. Posterior elements are intact. Normal paraspin al soft tissues. The odontoid is intact. IMPRESSION: 1. No acute fracture or malalignment. 2. Straightening and reversal of the normal cervical lordosis. 3. Early degenerative changes of the lower C-spine as indicated above.
== END 2023-06-23 13:33 | disposition home or self-care (01) ==
PROVIDERS: PCP Family Medicine; Visit Provider Family Medicine
DX: M50.121 Cervical disc disorder at C4-C5 level with radiculopathy (principal); M47.892 Other spondylosis, cervical region
CPT/HCPCS: 72040

== ENCOUNTER 2024-02-10 06:47 | Outpatient (CLI) | payer OTHER, SELFPAY ==
--- NOTE | 2024-02-10 07:00 | USR_ITS ---
PROCEDURE INFORMATION: Exam: US Right Limited Joint or Other Non-Vascular Extremity Structure Exam date and time: 02/10/2024 7:13 AM Age: 38 years old Clinical indication: Mass or lump; Arm, upper; Right; Additional info: Persistant lump right axilla >8 weeks TECHNIQUE: Imaging protocol: US right limited joint or other nonvascular extremity structure. Real-time ultrasound with image documentation. COMPARISON: US soft tissue/extremity [id number] 05/11/2017 10:48 AM FINDINGS: Soft tissues: No anechoic collections. Other findings: Tiny circumscribed oval-shaped hypoechoic nodular structure in the very superficial subcutaneous fat of the right axilla measures 8 mm x 6 mm x 3 mm which does not extend to the surface of the skin or the deeper soft tissues. US/US soft tissue/extremity [id number] IMPRESSION: There is a tiny nonspecific complex nodule in the very superficial fat of the right axilla.
== END 2024-02-10 06:48 | disposition home or self-care (01) ==
LOC: RAD 06:47
PROVIDERS: PCP Family Medicine; Visit Provider Family Medicine
DX: R22.31 Localized swelling, mass and lump, right upper limb (principal)
CPT/HCPCS: 76882

== ENCOUNTER 2024-02-15 14:27 | Emergency (ER) | payer OTHER, SELFPAY ==
[2024-02-15 14:33] VITALS: BP 151/95; PULSE 84; RESP 17; TEMP 36.6; O2SAT 98
[2024-02-15 14:39] VITALS: BP 136/93; PULSE 113; RESP 14; TEMP 36.9; O2SAT 97
[2024-02-15 15:11] LABS: Basophils % 0.4 %; Eosinophils # 0.2 10^3/uL (0.0-0.8); Eosinophils % 2.5 %; Hematocrit 52.8 % (37-53); Lymphocytes # 1.2 10^3/uL (0.8-4.8); Lymphocytes % 13.2 %; Mean Corpuscular HGB Conc 34.7 g/dL (30-55); Mean Corpuscular Hemoglobin 32.6 pg (27-33); Monocytes # 1.2 10^3/uL (0.2-0.9); Monocytes % 13.1 %; Neutrophils # 6.57 10^3/uL (1.8-7.7); Neutrophils % 70.6 %; Nucleated Red Blood Cells % 0 %; Platelet Count 237 10^3/cmm (157-399); Red Blood Count 5.62 10^6/uL (3.85-5.65); Red Cell Distribution Width 13.2 % (12.1-15.1); White Blood Count 9.31 10^3/uL (3.29-11.43)
[2024-02-15 15:30] LABS: Alanine Aminotransferase 47 U/L (0-41); Albumin Level 4.4 g/dL (3.5-5.2); Alkaline Phosphatase 162 U/L (40-130); Anion Gap 18.4 (5-19); Aspartate Amino Transferase 37 U/L (0-40); Blood Urea Nitrogen 10 mg/dL (6-20); Calcium 9.3 mg/dL (8.5-10.5); Carbon Dioxide 19 mmol/L (22-29); Chloride 99 mmol/L (98-107); Creatinine Clr Calc Pharmacy 125.6615; Globulin 3.6 g/dL (1.3-4.6); Glomerular Filtration Rate 107.6 mL/min (90-130); Glucose 136 mg/dL (65-115); Lipase 33 U/L (13-60); Osmolality Calculated 277 mOsm/kg (285-295); Potassium 3.4 mmol/L (3.5-5.1); Sodium 133 mmol/L (136-145); Total Bilirubin 0.4 mg/dL (0.15-1.2)
--- NOTE | 2024-02-15 18:19 | CTR_ITS ---
PROCEDURE INFORMATION: Exam: CT Abdomen And Pelvis With Contrast Exam date and time: 02/15/2024 6:48 PM Age: 38 years old Clinical indication: Abdominal pain; Generalized; Prior surgery; Surgery date: 6+ months; Surgery type: Appy; Additional info: Abd pain TECHNIQUE: Imaging protocol: Computed tomography of the abdomen and pelvis with contrast. Radiation optimization: All CT scans at this facility use at least one of these dose optimization techniques: automated exposure control; mA and/or kV adjustment per patient size (includes targeted exams where dose is matched to clinical indication); or iterative reconstruction. Contrast material: OMNI 350; Contrast volume: 100 ml; Contrast route: INTRAVENOUS (IV); COMPARISON: CT kidney stone [id number] 12/10/2022 4:31 PM RADIATION DOSE METRICS: Total DLP (mGy-cm): 671.75 FINDINGS: Lungs: Right middle lung opacity measuring 3 millimeters (series 3, image 1). Liver: Normal. No mass. Gallbladder and biliary ducts: Normal. No calcified stones. No ductal dilation. Pancreas: Normal. No ductal dilation. Spleen: Normal. No splenomegaly. Adrenal glands: Normal. No mass. Kidneys and ureters: No suspicious renal mass. No hydronephrosis or nephrolithiasis. Ureters are normal. There is a simple cyst in the kidney. Stomach and bowel: Diffuse colonic submucosal edema and wall thickening with hyperemia. Appendix: There has been an appendectomy. Intraperitoneal space: Unremarkable. No free air. No significant fluid collection. Vasculature: Unremarkable. No abdominal aortic aneurysm. Lymph nodes: Prominent mesenteric lymph nodes along the distal SMV measuring up to 0.8 centimeters. Urinary bladder: Unremarkable as visualized. Reproductive: Unremarkable as visualized. Bones/joints: Unremarkable. No acute fracture. Soft tissues: Unremarkable. CT/CT abdomen pelvis w con* [id number] IMPRESSION: Pancolonic diffuse bowel wall thickening, submucosal edema, and associated hyperemia which can be seen with pancolitis. COMMENTS: Consistent with the [employer]'s Incidental Findings Committee white paper (J Am Meena Radiol 2018): Any incidental renal lesion less than 1 cm or classified as too small to characterize, or any incidental cystic renal lesion characterized as simple-appearing, is likely benign. No follow-up imaging is recommended for these lesions per consensus recommendations based on imaging criteria.
--- NOTE | 2024-02-15 18:22 | ED_ITS ---
HPI - Abdominal Pain 2 General: Chief Complaint: Abdominal Pain Stated Complaint: stomach pain, nauseau, vomiting Time Seen by Provider: 02/15/24 18:15 Source: patient Mode of arrival: ambulatory Limitations: no limitations History of Present Illness: 38-year-old male states he has a history of ulcerative colitis states that he has been having diffuse abdominal pain over the last week. States main pain is in his lower abdomen he is also had some vomiting diarrhea denies any fevers denies any worse improving factors. Associated Symptoms: Reports diarrhea, nausea and vomiting; Denies chills, dysuria and fever(s) Review of Systems 2 Const: Denies: fever(s), chills, body aches or change in appetite ENMT: Denies: throat pain or dental pain Card: Denies: chest pain Resp: Denies: dyspnea GI: Reports: abdominal pain, nausea, vomiting and diarrhea : Denies: dysuria Musc: Denies: neck pain or back pain Skin/Breast: Denies: rash Neuro: Denies: headache(s) PFSH ED 2 PFSH: Medical History GERD without esophagitis Social History Smoking and tobacco/nicotine status: current every day tobacco/nicotine user Physical Exam 2 Const: COMMON NORMALS: no acute distress, patient oriented x3 and healthy appearing HENMT: COMMON NORMALS: normocephalic and atraumatic HEAD & SCALP: n ormocephalic and atraumatic Neck/C-Spine: COMMON NORMALS: full ROM and supple Chest: COMMONS NORMALS: normal inspection of the chest Resp: COMMON NORMALS: normal respiratory effort Cardio: COMMON NORMALS: regular rate, regular rhythm and No murmurs present (Cardio) RATE: regular rate RHYTHM: regular rhythm GI: COMMON NORMALS: Normal to inspection, nondistended, normoactive bowel sounds present, Soft to palpation and no masses PALPATION: Yes Soft to palpation OTHER: diffuse mild tendernes Extremity: COMMON NORMALS: normal to inspection and full ROM Neuro: COMMON NORMALS: patient oriented x3, moves all extremities and no focal motor deficits Psych: COMMON NORMALS: mental status grossly normal, Normal thought process present and cooperative THOUGHT PROCESS: Normal thought process present Skin: COMMON NORMALS: no rashes or lesions noted and no wounds GENERAL SKIN EXAM: no rashes or lesions noted Course 2 Vital Signs: Vital signs: Vital Signs Temperature 98.4 F 02/15/24 14:39 Pulse Rate 104 H 02/15/24 18:40 Respiratory Rate 17 02/15/24 18:36 Blood Pressure 129/90 02/15/24 18:40 Pulse Oximetry 96 02/15/24 18:40 Oxygen Delivery Me thod Room Air 02/15/24 18:40 MDM - Abdominal Pain Medical Decision Making Patient presents for abdominal pain CT shows a colitis could be an ulcerative colitis flare we will put him on steroids antibiotics and have him follow-up with surgery he is return if worsening he understands agrees to plan. Medical Records I reviewed the patient's medical records. Lab Data I reviewed the patient's lab results. 02/15/24 15:04 02/15/24 15:04 Labs/Radiology: Radiology Impressions Abdomen/Pelvis CT 02/15/24 18:19 IMPRESSION: Pancolonic diffuse bowel wall thickening, submucosal edema, and associated hyperemia which can be seen with pancolitis. COMMENTS: Consistent with the [employer]'s Incidental Findings Committee white paper (J Am Meena Radiol 2018): Any incidental renal lesion less than 1 cm or classified as too small to characterize, or any incidental cystic renal lesion characterized as simple-appearing, is likely benign. No follow-up imaging is recommended for these lesions per consensus recommendations based on imaging criteria. Laboratory Results WBC 9.31 10^3/uL (3.29-11.43) 02/15/24 15:04 RBC 5.62 10^6/uL (3.85-5.65) 02/15/24 15:04 Hgb 18.30 g/dL (11.27-16.99) H 02/15/24 15:04 Hct 52.8 % (37-53) 02/15/24 15:04 MCV 94.0 fl (82-101) 02/15/24 15:04 MCH 32.6 pg (27-33) 02/15/24 15:04 MCHC 34.7 g/dL (30-55) 02/15/24 15:04 RDW 13.2 % (12.1-15.1) 02/15/24 15:04 Plt Count 237 10^3/cmm (157-399) 02/15/24 15:04 MPV 11.0 fL (7.4-10.4) H 02/15/24 15:04 Neut % (Auto) 70.6 % 02/15/24 15:04 Lymph % (Auto) 13.2 % 02/15/24 15:04 Giles % (Auto) 13.1 % 02/15/24 15:04 Eos % (Auto) 2.5 % 02/15/24 15:04 Baso % (Auto) 0.4 % 02/15/24 15:04 Neut # (Auto) 6.57 10^3/uL (1.8-7.7) 02/15/24 15:04 Lymph # (Auto) 1.2 10^3/uL (0.8-4.8) 02/15/24 15:04 Giles # (Auto) 1.2 10^3/uL (0.2-0.9) H 02/15/24 15:04 Eos # (Auto) 0.2 10^3/uL (0.0-0.8) 02/15/24 15:04 Baso # (Auto) 0.0 10^3/uL (0.0-0.1) 02/15/24 15:04 Nucleated RBC % (auto) 0 % 02/15/24 15:04 Nucleated RBCs # 0.0 /100WBC 02/15/24 15:04 Sodium 133 mmol/L (136-145) L 02/15/24 15:04 Potassium 3.4 mmol/L (3.5-5.1) L 02/15/24 15:04 Chloride 99 mmol/L (98-107) 02/15/24 15:04 Carbon Dioxide 19 mmol/L (22-29) L 02/15/24 15:04 Anion Gap 18.4 (5-19) 02/15/24 15:04 BUN 10 mg/dL (6-20) 02/15/24 15:04 Creatinine 0.8 mg/dL (0.7-1.2) 02/15/24 15:04 GFR Calculation 107.6 mL/min (90-130) 02/15/24 15:04 Glucose 136 mg/dL (65-115) H 02/15/24 15:04 Calculated Osmolality 277 mOsm/kg (285-295) L 02/15/24 15:04 Calcium 9.3 mg/dL (8.5-10.5) 02/15/24 15:04 Total Bilirubin 0.4 mg/dL (0.15-1.2) 02/15/24 15:04 AST 37 U/L (0-40) 02/15/24 15:04 ALT 47 U/L (0-41) H 02/15/24 15:04 Alkaline Phosphatase 162 U/L (40-130) H 02/15/24 15:04 Total Protein 8.0 g/dL (6.6-8.7) 02/15/24 15:04 Albumin 4.4 g/dL (3.5-5.2) 02/15/24 15:04 Globulin 3.6 g/dL (1.3-4.6) 02/15/24 15:04 Lipase 33 U/L (13-60) 02/15/24 15:04 All radiology interpretation(s) finalized by discharge Discharge Plan Discharge Patient Disposition: Home Clinical Impression: Colitis Condition: Stable Prescriptions: New hydrocodone-acetaminophen 5-325 mg tablet 1 tab PO Q6H PRN (Reason: pain) Qty: 14 0RF Cipro 500 mg tablet 500 mg PO BID Qty: 14 0RF ondansetron 4 mg tablet,disintegrating 4 mg PO Q6H PRN (Reason: nausea and vomiting) Qty: 14 0RF metronidazole 500 mg tablet 500 mg PO Q8H 7 Days Qty: 21 0RF prednisone 50 mg tablet 50 mg PO DAILY Qty: 5 0RF No Action cephalexin 500 mg capsule 500 mg PO TID 7 Days Qty: 21 0RF Protonix 40 mg tablet,delayed release (DR/EC) 40 mg PO DAILY 60 Days Qty: 60 1RF Lialda 1.2 gram tablet,delayed release (DR/EC) See Rx Instructions .ROUTE .COMPLEX Qty: 240 1RF Dose Instruction: TAKE 4 TABLETS BY MOUTH EVERY DAY FOR ULCERATIVE COLITIS Rx Instructions: TAKE 4 TABLETS BY MOUTH EVERY DAY FOR ULCERATIVE COLITIS hydrocodone-acetaminophen 5-325 mg tablet 1 tab PO DAILY PRN (Reason: pain (scale score 7-10)) 30 Days Qty: 30 0RF acetaminophen [Tylenol Extra Strength] 500 mg Tablet 1,000 mg PO Q6H PRN (Reason: Pain) cyclobenzaprine 10 mg tablet 10 mg PO TID PRN (Reason: Muscle Spasm) Discharge Orders: Discharge ED (Routine); Ordered 02/15/24 Ordered By: Bere Smith Referrals: Germán Aguirre MD [Physician] - 1-3 days Enio Harris MD [Primary Care Provider] - Discharge Diet: Advance as tolerated Discharge Activity: Resume usual activity Patient Instructions: Colitis (ED), Opioid Safety Coding Level of Care Code ED Warehouse Checker for Tc Delgado
[2024-02-15] MEDS: sodium chloride 0.9% 1,000 ML 999 ML IV (18:35)
[2024-02-15 18:36] VITALS: RESP 17
[2024-02-15] MEDS: morphine 4 mg/mL SDV 1 mL IVP (18:36)
[2024-02-15] MEDS: ondansetron 2 mg/ML SDV 2 mL 4 MG IVP (18:37)
[2024-02-15 18:40] VITALS: BP 129/90; PULSE 104; O2SAT 96
[2024-02-15] MEDS: iohexol 350 mg/mL 500 mL Btl (per mL) IV (18:51)
[2024-02-15 19:50] VITALS: BP 147/108; PULSE 78; RESP 16; O2SAT 97
[2024-02-15] MEDS: methylPREDNISolone sod succ 125 mg/2 mL INJ IVP (19:51)
[2024-02-15 19:53] VITALS: BP 147/108; PULSE 78; RESP 16; TEMP 36.9; O2SAT 97
--- NOTE | 2024-02-16 08:04 | DCPLANNER ---
message sent to General surgery for follow up
== END 2024-02-15 19:57 | disposition home or self-care (01) ==
PROVIDERS: Emergency Provider Emergency Medicine; PCP Family Medicine
DX: K52.9 Noninfective gastroenteritis and colitis, unspecified (principal); Z72.0 Tobacco use
CPT/HCPCS: 36415; 74177; 80053; 83690; 85025; 96374; 96375; 99285; J2270; J2405; J2919; J7030; Q9967

== ENCOUNTER → 2024-09-01 10:53 | Outpatient (BNVA) | payer SELFPAY | PROVIDERS: PCP Family Medicine; Visit Provider Family Medicine | DX: K51.90 Ulcerative colitis, unspecified, without complications (principal) | CPT/HCPCS: 80053; 85025 ==

== ENCOUNTER 2024-12-02 22:58 | Emergency (ER) | payer SELFPAY ==
[2024-12-02 23:01] VITALS: BP 139/79; PULSE 75; RESP 16; TEMP 36.6; O2SAT 97
[2024-12-03 00:20] LABS: Basophils # 0.1 10^3/uL (0.0-0.1); Basophils % 0.4 %; Eosinophils # 0.4 10^3/uL (0.0-0.8); Eosinophils % 3.5 %; Hematocrit 46.1 % (37-53); Lymphocytes % 17.9 %; Mean Corpuscular HGB Conc 33.8 g/dL (30-55); Mean Corpuscular Hemoglobin 32.3 pg (27-33); Mean Corpuscular Volume 95.4 fl (82-101); Monocytes # 0.7 10^3/uL (0.2-0.9); Monocytes % 6.6 %; Neutrophils % 71.3 %; Nucleated Red Blood Cells % 0 %; Platelet Count 275 10^3/cmm (157-399); Red Blood Count 4.83 10^6/uL (3.85-5.65); Red Cell Distribution Width 13.5 % (12.1-15.1); White Blood Count 11.22 10^3/uL (3.29-11.43)
[2024-12-03 00:29] LABS: Anion Gap 17.3 (5-19); Blood Urea Nitrogen 10 mg/dL (6-20); Calcium 9.6 mg/dL (8.5-10.5); Carbon Dioxide 22 mmol/L (22-29); Chloride 103 mmol/L (98-107); Creatinine Clr Calc Pharmacy 111.8531; Glomerular Filtration Rate 93.5 mL/min (90-130); Glucose 97 mg/dL (65-115); Lipase 37 U/L (13-60); Osmolality Calculated 287 mOsm/kg (285-295); Potassium 3.3 mmol/L (3.5-5.1); Sodium 139 mmol/L (136-145)
[2024-12-03 00:45] VITALS: BP 142/97; PULSE 68; RESP 16; O2SAT 95
[2024-12-03 02:00] VITALS: BP 120/82; PULSE 88; RESP 16; O2SAT 98
[2024-12-03] MEDS: ondansetron hcl ODT 4 mg Tab PO (02:14)
[2024-12-03 02:20] LABS: Bilirubin Urine Negative (Negative); Blood Urine Negative (Negative); Glucose Urine UA Negative (Normal); Ketones Urine Negative (Negative); Leukocyte Esterase Urine Negative (Negative); Nitrate Urine Negative (Negative); Protein Urine Negative (Negative); Specific Gravity, Urine 1.017 (1.005-1.030); Urine Appearance Clear (CLEAR); Urine Color Yellow (Yellow)
[2024-12-03 02:25] LABS: Add Urine Microscopic? YES; Bacteria Urine None Seen /hpf; RBC Urine 0-2 /hpf (0-2); Squamous Epithelial Cell Urine 0-5 /hpf (0-5); WBC Urine 0-5 /hpf (0-5)
--- NOTE | 2024-12-03 02:54 | CTR_ITS ---
PROCEDURE INFORMATION: Exam: CT Abdomen And Pelvis With Contrast Exam date and time: 12/03/2024 3:21 AM Age: 39 years old Clinical indication: Vomiting and other: Hematemesis and hematochezia; Abdominal pain; Generalized; Prior surgery; Surgery date: 6+ months; Surgery type: Appy; C/O diffuse abd pain with hematemeis and hematochezia. History of ulcerative colitis. ; Additional info: Diffuse abdominal pain with history of crohn's, hematemesis as well as hematochezia TECHNIQUE: Imaging protocol: Computed tomography of the abdomen and pelvis with contrast. Radiation optimization: All CT scans at this facility use at least one of these dose optimization techniques: automated exposure control; mA and/or kV adjustment per patient size (includes targeted exams where dose is matched to clinical indication); or iterative reconstruction. Contrast material: OMNI 350; Contrast volume: 100 ml; Contrast route: INTRAVENOUS (IV); COMPARISON: CT abdomen pelvis w con* [id number] 02/15/2024 6:48 PM RADIATION DOSE METRICS: Total DLP (mGy-cm): 624.62 FINDINGS: Liver: Liver normal in size and contour. Anterior right hepatic lobe hypodensity measuring 6 mm, unchanged, likely a cyst. Gallbladder and biliary ducts: Normal. No calcified stones. No ductal dilation. Pancreas: Normal. No ductal dilation. Spleen: Normal. No splenomegaly. Adrenal glands: Normal. No mass. Kidneys and ureters: Normal. No hydronephrosis. Stomach and bowel: Small bowel normal in caliber without focal wall thickening or dilation. Circumferential wall thickening of the large bowel from the splenic flexure through the distal sigmoid colon. [id number] diverticulosis. Nonobstructive bowel gas pattern. Appendix: Appendix surgically absent. Intraperitoneal space: Unremarkable. No free air. No significant fluid collection. Vasculature: Unremarkable. No abdominal aortic aneurysm. Lymph nodes: Unremarkable. No enlarged lymph nodes. Urinary bladder: Unremarkable as visualized. Reproductive: Unremarkable as visualized. Bones/joints: Unremarkable. No acute fracture. Soft tissues: Unremarkable. CT/CT abdomen pelvis w con* [id number] IMPRESSION: 1. Circumferential wall thickening of the descending colon and sigmoid colon, consistent with provided history of ulcerative colitis. Nonobstructive bowel gas pattern. No free air or significant free fluid. 2. [id number] distal colonic diverticulosis without overt findings of diverticulitis.
[2024-12-03 03:00] VITALS: BP 124/84; PULSE 87; RESP 16; O2SAT 94
[2024-12-03] MEDS: iohexol 350 mg/mL 500 mL Btl (per mL) IV (03:25)
[2024-12-03] MEDS: pantoprazole 40 mg SDV 80 MG IVP (03:36)
--- NOTE | 2024-12-03 03:59 | ED_ITS ---
HPI - Abdominal Pain 2 General: Chief Complaint: Abdominal Pain Stated Complaint: abd pain n/v v. blood and rectal bleeding Time Seen by Provider: 12/03/24 02:26 History of Present Illness: Mohit, a patient with a history of ulcerative colitis, presents to the emergency department with increased blood in stool, nausea, and vomiting with blood. The patient reports experiencing the most blood in their stool that they have ever had. They have been nauseous for 3 days and have had a decreased appetite. Prior to arriving at the hospital, the patient vomited at home and noticed a small amount of blood in the vomit, which they state has never happened before. The patient also mentions two noticeable lymph nodes, one in the armpit and one near the anus, which have been present for a couple of weeks. These lymph nodes reportedly fluctuate in size, sometimes getting smaller and sometimes flaring up. The patient is experiencing pain in the epigastric area, below the sternum, which they indicate is different from their usual ulcerative colitis pain. They also report some pain in the right lower quadrant. The patient denies experiencing fevers, chills, or unexplained weight loss. While they report sweating heavily during sleep, they state it is not out of the ordinary and does not involve soaking through sheets. Related Data Home Medications ?Medication ?Instructions ?Recorded ?Confirmed acetaminophen 500 mg tablet 1,000 mg PO Q6H PRN Pain 0 03/18/21 09/01/24 (Tylenol Extra Strength) Previous Rx's ?Medication ?Instructions ?Recorded amitriptyline 25 mg tablet 25 mg PO BEDTIME #30 tabs 0 09/01/24 hydrocodone 5 mg-acetaminophen 325 1 tab PO Q8H PRN pa in 7 days #20 09/01/24 mg tablet tabs mesalamine 1.2 gram tablet,delayed See Rx Instructions .Route 09/01/24 release .COMPLEX #240 tabs omeprazole 20 mg capsule,delayed See Rx Instructions . Route 09/01/24 release .COMPLEX #60 caps ondansetron 4 mg disintegrating 4 mg PO DAILY PRN naus ea and 12/03/24 tablet vomiting 4 days #4 tabs prednisone 50 mg tablet 50 mg PO DAILY #7 tabs 12/03 Allergies Allergy/AdvReac Type Severity Reaction Status Date / Time lorazepam (From Ativan) Allergy ALGY-Swell Verified 09/01/24 09:58 Lip/Tongue/Throat metoclopramide (From Reglan) Allergy ADR-Anxiety Verified 09/01/24 09:58 Review of Systems 2 General: Reports: 10 or more systems reviewed and unremarkable except in HPI and below PFSH ED 2 PFSH: Medical History (Updated 12/03/24 @ 04:01 by Ramon Becerra DO) GERD without esophagitis Family History (Updated 03/23/24 @ 08:52 by BENITO Hardin) Mother Lymphoma Grandmother Breast cancer Father Bladder cancer Social History Smoking and tobacco/nicotine status: current every day tobacco/nicotine user Physical Exam 2 Const: COMMON NORMALS: no acute distress, patient oriented x3, healthy appearing, alert and well nourished HENMT: COMMON NORMALS: normocephalic HEAD & SCALP: normocephalic Eye: COMMON NORMALS: EOMs intact bilaterally Neck/C-Spine: COMMON NORMALS: full ROM and supple Resp: COMMON NORMALS: normal respiratory effort, No retractions and clear to auscultation bilaterally AUSCULTATION: clear to auscultation bilaterally Cardio: COMMON NORMALS: regular rate, regular rhythm, No gallops present (Cardio) and No murmurs present (Cardio) RATE: regular rate RHYTHM: r egular rhythm GI: COMMON NORMALS: Soft to palpation and no masses PALPATION: Yes Soft to palpation OTHER: Epigastric tenderness on palpation. Right lower quadrant tenderness on palpation. Pain worse with pressing compared to release in right lower quadrant. Epigastric palpation elicits mild nausea. No rebound or guarding Extremity: GENERAL: Yes normal exam except as noted Neuro: COMMON NORMALS: patient oriented x3 SENSORIUM/ORIENTATION: Yes alert Skin: COMMON NORMALS: no rashes or lesions noted GENERAL SKIN EXAM: no rashes or lesions noted Course 2 Vital Signs: Vital signs: Vital Signs Temperature 97.8 F 12/02/24 23:01 Pulse Rate 78 12/03/24 04:03 Respiratory Rate 16 12/03/24 04:03 Blood Pressure 120/84 12/03/24 04:03 Pulse Oximetry 96 12/03/24 04:03 Oxygen Delivery Me thod Room Air 12/03/24 04:03 MDM - Abdominal Pain Medical Decision Making 39-year-old male presents to the emergency department for evaluation of abdominal pain, blood in his stool, and 1 episode of hemoptysis. Patient has a past medical history of UC. His physical exam was notable for right lower quadrant tenderness and epigastric tenderness without rebound or guarding. Laboratory evaluation was globally unremarkable. CT of the abdomen pelvis confirmed ulcerative colitis. Patient started on prednisone, first dose given here in the emergency department. Patient was given 7 days of prednisone and instructed to follow-up with his primary care physician or GI doctor to determine if it was time for taper or if he needed to continue the higher dose for a longer period of time. Pain management with his previously prescribed hydrocodone and Tylenol. Return precautions were discussed and the patient was discharged home in good condition. Differential Diagnosis Likely acute appendicitis, calculus of kidney, constipation, diverticulitis, gastroenteritis and small bowel obstruction Lab Data 12/02/24 23:54 12/02/24 23:54 Labs/Radiology: Radiology Impressions Abdomen/Pelvis CT 12/03/24 02:54 IMPRESSION: 1. Circumferential wall thickening of the descending colon and sigmoid colon, consistent with provided history of ulcerative colitis. Nonobstructive bowel gas pattern. No free air or significant free fluid. 2. [id number]-kf-[id number] distal colonic diverticulosis without overt findings of diverticulitis. Laboratory Results WBC 11.22 10^3/uL (3.29-11.43) 12/02/24 23:54 RBC 4.83 10^6/uL (3.85-5.65) 12/02/24 23:54 Hgb 15.60 g/dL (11.27-16.99) 12/02/24 23:54 Hct 46.1 % (37-53) 12/02/24 23:54 MCV 95.4 fl (82-101) 12/02/24 23:54 MCH 32.3 pg (27-33) 12/02/24 23:54 MCHC 33.8 g/dL (30-55) 12/02/24 23:54 RDW 13.5 % (12.1-15.1) 12/02/24 23:54 Plt Count 275 10^3/cmm (157-399) 12/02/24 23:54 MPV 11.0 fL (7.4-10.4) H 12/02/24 23:54 Neut % (Auto) 71.3 % 12/02/24 23:54 Lymph % (Auto) 17.9 % 12/02/24 23:54 [place]arro % (Auto) 6.6 % 12/02/24 23:54 Eos % (Auto) 3.5 % 12/02/24 23:54 Baso % (Auto) 0.4 % 12/02/24 23:54 Neut # (Auto) 8.00 10^3/uL (1.8-7.7) H 12/02/24 23:54 Lymph # (Auto) 2.0 10^3/uL (0.8-4.8) 12/02/24 23:54 [place]arro # (Auto) 0.7 10^3/uL (0.2-0.9) 12/02/24 23:54 Eos # (Auto) 0.4 10^3/uL (0.0-0.8) 12/02/24 23:54 Baso # (Auto) 0.1 10^3/uL (0.0-0.1) 12/02/24 23:54 Nucleated RBC % (auto) 0 % 12/02/24 23:54 Nucleated RBCs # 0.0 /100WBC 12/02/24 23:54 Sodium 139 mmol/L (136-145) 12/02/24 23:54 Potassium 3.3 mmol/L (3.5-5.1) L 12/02/24 23:54 Chloride 103 mmol/L (98-107) 12/02/24 23:54 Carbon Dioxide 22 mmol/L (22-29) 12/02/24 23:54 Anion Gap 17.3 (5-19) 12/02/24 23:54 BUN 10 mg/dL (6-20) 12/02/24 23:54 Creatinine 0.9 mg/dL (0.7-1.2) 12/02/24 23:54 GFR Calculation 93.5 mL/min (90-130) 12/02/24 23:54 Glucose 97 mg/dL (65-115) 12/02/24 23:54 Calculated Osmolality 287 mOsm/kg (285-295) 12/02/24 23:54 Calcium 9.6 mg/dL (8.5-10.5) 12/02/24 23:54 Lipase 37 U/L (13-60) 12/02/24 23:54 Urine Color Yellow (Yellow) 12/03/24 02:09 Urine Appearance Clear (CLEAR) 12/03/24 02:09 Urine pH 6.0 (5-7) 12/03/24 02:09 Ur Specific [place] 1.017 (1.005-1.030) 12/03/24 02:09 Urine Protein Negative (Negative) 12/03/24 02:09 Urine Glucose (UA) Negative (Normal) 12/03/24 02:09 Urine Ketones Negative (Negative) 12/03/24 02:09 Urine Blood Negative (Negative) 12/03/24 02:09 Urine Nitrate Negative (Negative) 12/03/24 02:09 Urine Bilirubin Negative (Negative) 12/03/24 02:09 Urine Urobilinogen 1.0 mg/dL (Negative) 12/03/24 02:09 Ur Leukocyte Esterase Negative (Negative) 12/03/24 02:09 Urine RBC 0-2 /hpf (0-2) 12/03/24 02:09 Urine WBC 0-5 /hpf (0-5) 12/03/24 02:09 Ur Squamous Epith Cells 0-5 /hpf (0-5) 12/03/24 02:09 Amorphous Sediment Not Reportable 12/03/24 02:09 Urine Bacteria None seen /hpf (NONE) 12/03/24 02:09 Hyaline Casts 0.40 /lpf 12/03/24 02:09 All radiology interpretation(s) finalized by discharge Discharge Plan Discharge Patient Disposition: Home Clinical Impression: Ulcerative colitis Qualifiers: Ulcerative colitis location: unspecified ulcerative colitis location Digestive disease complication type: with rectal bleeding Qualified Code(s): K51.911 - Ulcerative colitis, unspecified with rectal bleeding Condition: Stable Prescriptions: New prednisone 50 mg tablet 50 mg PO DAILY Qty: 7 0RF ondansetron 4 mg tablet,disintegrating 4 mg PO DAILY PRN (Reason: nausea and vomiting) 4 Days Qty: 4 0RF No Action mesalamine 1.2 gram tablet,delayed release (DR/EC) See Rx Instructions .ROUTE .COMPLEX Qty: 240 1RF Dose Instruction: TAKE 4 TABLETS BY MOUTH EVERY DAY FOR ulcerative colitis Rx Instructions: TAKE 4 TABLETS BY MOUTH EVERY DAY FOR ulcerative colitis omeprazole 20 mg capsule,delayed release(DR/EC) See Rx Instructions .ROUTE .COMPLEX Qty: 60 8RF Dose Instruction: take 1 capsule BY MOUTH EVERY DAY Rx Instructions: take 1 capsule BY MOUTH EVERY DAY amitriptyline 25 mg tablet 25 mg PO BEDTIME Qty: 30 0RF hydrocodone-acetaminophen 5-325 mg tablet 1 tab PO Q8H PRN (Reason: pain) 7 Days Qty: 20 0RF acetaminophen [Tylenol Extra Strength] 500 mg Tablet 1,000 mg PO Q6H PRN (Reason: Pain) Discharge Orders: Discharge ED (Routine); Ordered 12/03/24 Ordered By: Ramon Becerra Referrals: Enio Harris MD [Primary Care Provider] - (Follow-up with your primary care physician within 1 week for UC flare) Discharge Diet: Advance as tolerated Discharge Activity: Increase activity as tolerated Patient Instructions: Opioid Safety, Pain Management Print Language: Tamazight Coding Level of Care Code ED Kit Assembler for Tc Delgado
[2024-12-03 04:03] VITALS: BP 120/84; PULSE 78; RESP 16; O2SAT 96
[2024-12-03] MEDS: predniSONE 20 mg Tablet 60 MG PO (04:22)
[2024-12-03 04:29] VITALS: BP 124/84; PULSE 82; RESP 16; O2SAT 98
== END 2024-12-03 04:33 | disposition home or self-care (01) ==
PROVIDERS: Emergency Provider General Practice; PCP Family Medicine
DX: K51.911 Ulcerative colitis, unspecified with rectal bleeding (principal)
CPT/HCPCS: 36415; 74177; 80048; 81001; 83690; 85025; 96374; 99285; J2470; J7512; Q0162